=== PATIENT | female | born 1945 | race African-American/Black ===

== ENCOUNTER 2023-07-29 11:04 | Outpatient (RCR) | payer MEDICARE, OTHER, SELFPAY ==
[2023-07-01] MEDS: XOLAIR 150 MG SC ×2 (11:18→11:19)
[2023-07-29 11:44] VITALS: BP 139/64
[2023-07-29] MEDS: XOLAIR 150 MG SC ×2 (11:51)
== END 2023-07-29 23:59 | disposition home or self-care (01) ==
LOC: OID 11:04
PROVIDERS: ATTENDING PHYSICIAN Internal Medicine Critical Care Medicine; FAMILY PHYSICIAN Family Medicine
DX: J45.50 Severe persistent asthma, uncomplicated (principal); J45.901 Unspecified asthma with (acute) exacerbation
CPT/HCPCS: 96372; J2357

== ENCOUNTER 2023-08-26 10:50 | Outpatient (RCR) | payer MEDICARE, OTHER, SELFPAY ==
[2023-08-26 11:02] VITALS: BP 119/74
[2023-08-26] MEDS: XOLAIR 150 MG SC ×2 (11:18→11:19)
== END 2023-08-29 23:59 | disposition home or self-care (01) ==
LOC: OID 10:50
PROVIDERS: ATTENDING PHYSICIAN Internal Medicine Critical Care Medicine; FAMILY PHYSICIAN Family Medicine
DX: J45.50 Severe persistent asthma, uncomplicated (principal); J45.901 Unspecified asthma with (acute) exacerbation
CPT/HCPCS: 96372; J2357

== ENCOUNTER 2023-09-23 10:56 | Outpatient (RCR) | payer MEDICARE, OTHER, SELFPAY ==
[2023-09-23 11:45] VITALS: BP 134/74
[2023-09-23] MEDS: XOLAIR 150 MG SC ×2 (12:01→12:02)
== END 2023-09-24 08:33 | disposition home or self-care (01) ==
LOC: OID 10:56
PROVIDERS: ATTENDING PHYSICIAN Internal Medicine Critical Care Medicine; FAMILY PHYSICIAN Family Medicine
DX: J45.50 Severe persistent asthma, uncomplicated (principal); J45.901 Unspecified asthma with (acute) exacerbation
CPT/HCPCS: 96372; J2357

== ENCOUNTER 2023-10-21 10:56 | Outpatient (RCR) | payer MEDICARE, OTHER, SELFPAY ==
[2023-10-21 11:17] VITALS: BP 153/70
[2023-10-21] MEDS: XOLAIR 150 MG SC ×2 (11:24→11:25)
== END 2023-10-21 15:16 | disposition home or self-care (01) ==
LOC: OID 10:56
PROVIDERS: ATTENDING PHYSICIAN Internal Medicine Critical Care Medicine; FAMILY PHYSICIAN Family Medicine
DX: J45.50 Severe persistent asthma, uncomplicated (principal); J45.901 Unspecified asthma with (acute) exacerbation
CPT/HCPCS: 96372; J2357

== ENCOUNTER 2023-11-10 15:36 | Inpatient (IN) | payer MEDICARE, OTHER, SELFPAY ==
[2023-11-10] VITALS (7 sets, daily range): BP systolic 125–168; BP diastolic 58–82; BMI 47.3; BMI 36.7
--- NOTE | 2023-11-10 12:34 | ED.GENMED ---
History of Present Illness
General
Chief Complaint: Breathing Problem
Source: patient and ambulance crew
Exam Limitations: none
Time Seen by Provider: 11/10/23 12:32
Nursing documentation reviewed up to this point in time: agreed with
Travel History
Have you had any contact with someone who has COVID-19?: No
Do you have any symptoms of coronavirus? Fever > 100 degrees, chills, cough, shortness of breath, sore throat, loss of taste or smell, muscle aches, or headache?: No
History of Present Illness
History of Present Illness:
77-year-old female here for 'I'm coughing,' from PCP office via EMS for shortness of breath and cough. Received a DuoNeb and albuterol neb by EMS en route. Reportedly pulse ox was less than 87% on room air at the office and patient placed on 4 L
nasal cannula with pulse ox increasing to 97%.
Patient with history of asthma, COPD, pneumonia, Chronic diastolic HF, CAD, HTN, HLD, edema, NIDDM, PE on Eliquis, presents with Caregiver Sarahi at bedside. Sarahi states pt has had cough and increasingly more SOB with decreased appetite past 2
days. Went to PCP for her routine 3 month visit and found to have low oxygen with cough and wheezing. States pt does not need home oxygen and does not use it. Denies fever. Pt denies CP, abdominal pain.
Past History
Past History
ED Past Medical History: Asthma, CHF, COPD, HTN, Hypercholesterolemia, NIDDM, MA and Other (Home oxygen, pneumonia, urinary tract infections, ambulatory dysfunction, cataracts, cellulitis, history of intubation); Negative IDDM
ED Past Surgical History: Cardiac (Cardiac catheteriztion), Tonsilectomy and Other (Bilateral cataract surgery)
Social History
Tobacco: Non-smoker
Alcohol: None
Drug: None
Personal:
Living: alone (Has nurses aids coming in)
Employment: Not employed
Family History
Family History: Unable to obtain
Review of Systems
Review of Systems
Allergies reviewed?: Yes
All Other Systems: ROS reviewed and negative except as documented in HPI and ROS
Constitutional: Reports fatigue; Denies fever
Respiratory: Reports cough and trouble breathing
Cardiac: Denies chest pain
ABD/GI: Reports anorexia; Denies abdominal pain, nausea, vomiting or diarrhea
: Denies dysuria or difficulty voiding
Musculoskeletal: Reports other (ambulates short distances with walker, otherwise wheelchair bound)
Skin: Reports no symptoms
Neurological: Reports no symptoms
Phy Exam
Physical Exam
Physical Exam:
GENERAL: Mild respiratory distress. Alert
CONSTITUTIONAL: Afebrile.
EYES: Clear, conjunctivae normal
ENMT: moist mucus membranes
RESPIRATORY: Regular respirations, labored, lungs with prolonged expiratory phase with low pitched wheezing throughout. Pulse ox 92% RA
CARDIOVASCULAR: Regular rate and rhythm, no murmurs, no rubs.
GI: Soft, morbid obesity, nontender, normal BS
MUSCULOSKELETAL: Moves with ease. Well perfused. No edema
SKIN: Warm, dry, normal
PSYCH: Anxious mood and affect. Well kept, interactive and appropriate
NEUROLOGIC: Awake, alert and oriented. No focal neurological deficits
Scores
Heart Failure Risk
Heart Failure Risk Score: Not Applicable
Course
Orders/Labs/Results
Orders:
Orders
11/10/23 12:37
EKG [Electrocardiogram (*1)] Urgent
Reason for Study: Shortness of Breath
EKG- Treatment ONCE
11/10/23 12:42
Electrocardiogram (*1) Stat
Reason for Study: Other
Other Reason for Exam: pneumonia
EKG- Treatment ONCE
Dexamethasone Sod Phosphate [Decadron] 10 mg IV NOW STA
Ipratropium/Albuterol Sulfate [Duoneb] 3 ml INH R NOW STA
O2 Therapy [RESP] Stat
Nasal Cannula Liter Flow: 2 LPM
Titrate/Wean O2 to maintain O2 sat greater than (%): 94
11/10/23 12:43
CR Chest - 2 Views Urgent
Comment:
Reason For Exam: Asthma, wheezing, cough
11/10/23 13:04
Complete Blood Count/With Diff Urgent
Comprehensive Metabolic Panel Urgent
Lactic Acid Q4H
Comment: CANCEL 2nd LACTIC ACID IF 1st LACTIC ACID IS LESS THAN 2
Blood Culture Q30M
ABIGAIL Source: Blood/Venous
Specimen Description:
Blood Culture Q30M
ABIGAIL Source: Blood/Venous
Specimen Description:
11/10/23 14:08
NT-proBNP Urgent
Troponin I Urgent
11/10/23 16:45
Lactic Acid Q4H
Comment: CANCEL 2nd LACTIC ACID IF 1st LACTIC ACID IS LESS THAN 2
Abnormal Lab Results
11/10/23
13:04
MCHC 32.3 L g/dL
(33.0-37.0)
RDW 15.5 H %
(11.5-14.5)
MPV 10.6 H fL
(7.4-10.4)
Carbon Dioxide 32 H mmol/L
(22-30)
Glucose 180 H mg/dl
(70-99)
Lactic Acid 2.3 H mmol/L
(0.7-2.0)
Alkaline Phosphatase 166 H U/L
(38-126)
11/10/23 13:04
11/10/23 13:04
Vital Signs
Initial and Last Documented VS:
Initial Vital Signs
Temp Pulse Resp BP Pulse Ox
98.4 F 118 20 141/69 95
11/10/23 12:21 11/10/23 12:21 11/10/23 12:21 11/10/23 12:21 11/10/23 12:21
Last Documented Vital Signs
Temp Pulse Resp BP Pulse Ox
98.4 F 100 20 144/80 92
11/10/23 12:21 11/10/23 14:45 11/10/23 12:21 11/10/23 14:00 11/10/23 14:45
MDM/Problems Addressed
Differential Diagnosis Includes:
asthma exacerbation/ COPD/bronchitis, PNA
MDM/Problems Addressed:
77-year-old female here for 'I'm coughing,' from PCP office via EMS for shortness of breath and cough. Received a DuoNeb and albuterol neb by EMS en route. Reportedly pulse ox was less than 90% on room air at the office and patient placed on 4 L
nasal cannula with pulse ox increasing to 97%.
Patient with history of asthma, COPD, pneumonia, Chronic diastolic HF, CAD, HTN, HLD, edema, NIDDM, PE on Eliquis, presents with Caregiver Sarahi at bedside. Sarahi states pt has had cough and increasingly more SOB with decreased appetite past 2
days. Went to PCP for her routine 3 month visit and found to have low oxygen with cough and wheezing. States pt does not need home oxygen and does not use it. Denies fever. Pt denies CP, abdominal pain.
Afebrile, mild distress with dyspnea and wheezing
EKG: NSR
1:30 PM
Chest x-ray: No acute cardiopulmonary process
2:30 p.m.
CBC unremarkable
CMP with no clinically significant abnormality
Troponin WNL
BNP WNL
2:45 p.m.
In to re evaluate pt. Still with some end expiratory low pitched wheezes throughout. Pulse ox 96% on 2L NC O2. She is hungry and asking to eat.
Off O2 desaturated to 89% while eating sandwich
Plan: Admit acute respiratory failure/asthma exacerbation
Hospitalist notified of admission.
Chronic conditions affecting care: HTN, COPD and Asthma
*EKG
EKG Intrepretation Date: 11/10/23
Interpretation: normal
Rate: normal
Rhythm: sinus
[place]: normal axis
Interval: normal interval
QRS Pattern: normal QRS
Ischemia: no ischemia
*Critical Care Note
Total Time (30-74mins, 75-104mins- exclusive of procedures): Not Applicable
ED Attending Note
-
Portions of this chart may have been created with voice recognition software.� Occasional wrong word or��sound alike� substitutions may have occurred due to the inherent limitations of voice recognition software.
Discharge Plan
Departure
Patient Disposition: Admit
Date of Disposition: 11/10/23
Time of Disposition: 14:47
Presentation/result/management discussed w/ accepting MD/DO: Hospitalist
Condition: Fair
Discharge Problem:
Acute respiratory failure, Asthma
Prescriptions:
No Action
montelukast 10 MG tablet
10 mg PO HS
Eliquis 5 MG tablet
5 mg PO BID
lisinopril 5 MG tablet
5 mg PO DAILY
levothyroxine 25 MCG tablet
25 mcg PO DAILY
atorvastatin 80 MG tablet
1 tab PO HS
amlodipine [Norvasc] 5 MG tablet
2 tab PO HS
albuterol sulfate [Proventil HFA] 90 MCG/PUFF HFA aerosol inhaler
2 puff inhalation PRN PRN (Reason: WHEEZING)
prednisone 10 MG tablet
5 mg PO Daily
azithromycin 250 MG tablet
1 tab PO DAILY
omeprazole 20 MG capsule,delayed release(DR/EC)
1 cap PO DAILY
Patient Comments:
TAKES BEFORE BREAKFAST
guaifenesin 600 mg Tablet Extended Release
1,200 mg PO Q12H
ergocalciferol (vitamin D2) [Vitamin D2] 10 mcg (400 unit) Tablet
10 mcg PO .QMON/FRI
bumetanide 1 mg Tablet
1 mg PO BID
Referrals:
Panfilo Ngo MD [Family Provider] -
Interventions
Interventions:
*Risk Screen - Suicide Last Done: 11/10/23 12:19
*General Assessment Last Done: 11/10/23 12:23
*Neglect/Abuse Screening Last Done: 11/10/23 12:19
ED- Fall Risk Assessment Last Done: 11/10/23 12:18
*ED COVID-19 Vaccine History Last Done: 11/10/23 12:19
ED- Cardiac Assessment Last Done: 11/10/23 12:25
ED- Pulmonary Assessment Last Done: 11/10/23 12:25
Discharge Date and Time
Print Language: HUNGARIAN
[2023-11-10] MEDS: DECADRON 10 MG IV (13:00)
[2023-11-10] MEDS: DUONEB 3 ML INH ×2 (13:00→20:21)
[2023-11-10 13:30] LABS: % Basophils 0.5 % (0-2); % Eosinophils 1.5 % (0-6); % Immature Granulocytes 0.3 % (0-0.5); % Lymphocytes 31.8 % (20.5-51.1); % Monocytes 6.9 % (1.7-9.3); Absolute Eosinophils 0.1 10^3/uL (0-0.7); Absolute Lymphocytes 2.3 10^3/uL (1.2-3.4); Absolute Monocytes 0.5 10^3/uL (0.1-0.6); Absolute Neutrophils 4.3 10^3/uL (1.4-6.5); Hematocrit 40.9 % (37.0-47.0); Hemoglobin 13.2 g/dL (12.0-16.0); Mean Corp Hgb Conc. 32.3 g/dL (33.0-37.0); Mean Corpuscular Hgb 29.7 pg (27.0-31.0); Mean Corpuscular Volume 91.9 fL (81.0-99.0); Mean Platelet Volume 10.6 fL (7.4-10.4); Nucleated Red Blood Cells % 0 %; Platelet Count 181 10^3/uL (130-400); Red Blood Cell Count 4.45 10^6/uL (4.20-5.40); Red Cell Dist. Width 15.5 % (11.5-14.5); White Blood Cell Count 7.3 10^3/uL (4.8-10.8)
[2023-11-10 13:37] LABS: Lactic Acid 2.3 mmol/L (0.7-2.0)
[2023-11-10 13:51] LABS: ALT (SGPT) 17 U/L (0-35); AST (SGOT) 29 U/L (14-36); Albumin 3.7 g/dl (3.5-5.0); Alkaline Phosphatase 166 U/L (38-126); Blood Urea Nitrogen 13 mg/dl (7-17); Carbon Dioxide 32 mmol/L (22-30); Chloride 101 mmol/L (98-107); Estimated Creatinine Clearance 64 ml/min; Glucose 180 mg/dl (70-99); Potassium 3.5 mmol/L (3.5-5.1); Sodium 142 mmol/L (135-145); Total Bilirubin 0.6 mg/dl (0.2-1.3); eGFR > 60.00
[2023-11-10 14:57] LABS: NT-proBNP 115 pg/ml; Troponin I < 0.012 ng/ml
--- NOTE | 2023-11-10 15:03 | HPS.HSE ---
Family Physician
-
Family Physician: Panfilo Ngo
Chief Complaint
-
sob
History of Present Illness
77-year-old female with past medical history for asthma, CHF, COPD, hypertension, hyperlipidemia, diabetes , DE presented to us with cough associated short of breath for past 2 days . Cough is nonproductive . Stated short of breath worse with
activity . Patient denied orthopnea . Patient denied weight gain . Patient denied any lower extremities edema . Patient complained of chest heaviness with coughing. Patient denied any headache, dizziness, syncopal episode. Patient denied
fever. Complain of generalized. Patient denied abdominal pain, nausea, vomiting. Denied dysuria hematuria.. Went to PCP for her routine 3 month visit and found to have low oxygen with cough and wheezing. Patient has oxygen prescribed for as
needed. She has not used it for a while.
On arrival she was hypoxic, requiring 4 L of oxygen. Admitting for further management.
Medical History
Past Medical History
Past Medical History: Reports Other
Additional Past Medical History:
COPD
Acute coronary syndrome
Diabetes type 2
Hypertension diastolic CHF
Restrictive and obstructive lung disease
Hyperlipidemia
Pulmonary embolism
Past Surgical History: Reports Other
Additional Past Surgical History:
Tonsillectomy
Cataract surgery
Social History
Tobacco: Non-smoker
Alcohol: None
Drug: None
Family History
Family History: Not pertinent
Allergies / Home Medications
Allergies reflects when Allergies were last updated in [employer].
Home Medications with original date entered in [employer]
Allergy/Medication List:
Allergies
Allergy/AdvReac Type Severity Reaction Status Date / Time
Penicillins Allergy Unknown Itching Verified 11/10/23 12:17
Cephalosporins Allergy Unknown Verified 11/10/23 12:17
latex Allergy Hypersensitivity, Verified 11/10/23 12:17
irritation
penicillin G Allergy Hives Verified 11/10/23 12:17
DUST Allergy Unknown Shortness Uncoded 11/10/23 12:17
of Breath
MOLDS Allergy Unknown Shortness Uncoded 11/10/23 12:17
of Breath
Dust, Mold Allergy 'break out' Uncoded 11/10/23 12:17
Home Medications
amlodipine 5 mg tablet 10 mg PO HS 11/10/23
atorvastatin 80 mg tablet 80 mg PO HS 11/10/23
azithromycin 250 mg tablet 250 mg PO DAILY 11/10/23
budesonide 0.5 mg/2 mL suspension for nebulization 0.5 mg inhalation R BID 11/10/23
bumetanide 1 mg tablet 1 mg PO BID 11/10/23
ergocalciferol (vitamin D2) 1,250 mcg (50,000 unit) capsule 1,250 mcg PO MOFR@0800 11/10/23
guaifenesin 600 mg tablet, extended release 12 hr 600 mg PO BID 11/10/23
ipratropium 0.5 mg-albuterol 3 mg (2.5 mg base)/3 mL nebulization soln 3 ml inhalation R BID 11/10/23
levothyroxine 25 mcg tablet 25 mcg PO DAILY 11/10/23
lisinopril 2.5 mg tablet 5 mg PO DAILY 11/10/23
montelukast 10 mg tablet 10 mg PO DAILY 11/10/23
omeprazole 20 mg capsule,delayed release 20 mg PO DAILY 11/10/23
prednisone 5 mg tablet 5 mg PO DAILY 11/10/23
Review of Systems
-
Constitutional: Reports No Symptoms
EENT: Reports No Symptoms
Respiratory: Reports Cough and Trouble Breathing
Cardiac: Reports No Symptoms
Abdomen/GI: Reports No Symptoms
: Reports No Symptoms
Musculoskeletal: Reports No Symptoms
Skin: Reports No Symptoms
Neurological: Reports No Symptoms
Endocrine: Reports No Symptoms
Hematologic/Lymphatic: Reports No Symptoms
Psych: Reports No Symptoms
Physical Exam
Vital Signs
Vital Signs
Temp Pulse Resp BP Pulse Ox
98.4 F 100 20 144/80 92
11/10/23 12:21 11/10/23 14:45 11/10/23 12:21 11/10/23 14:00 11/10/23 14:45
Physical Exam
General: Well Developed, Well Nourished and No Apparent Distress
HEENT: NormoCephalic, Moist mucous membranes and Atraumatic
Respiratory: Wheezes
Cardiac: S1/S2 and Regular Rhythm; No Murmur or Rub
GI: Soft, Non Tender, Non Distended and Normal Bowel Sounds; No Organomegaly
Rectal: Deferred by Provider
Musculoskeletal: No Clubbing, No Cyanosis and No Edema
Skin: No Rash
Neuro: AO x 3 and Nonfocal/grossly intact
Psych: Calm
Laboratory Results
-
11/10/23 13:04
11/10/23 13:04
Laboratory Results
Lactic Acid 2.3 mmol/L (0.7-2.0) H 11/10/23 13:04
Total Bilirubin 0.6 mg/dl (0.2-1.3) 11/10/23 13:04
AST 29 U/L (14-36) 11/10/23 13:04
ALT 17 U/L (0-35) 11/10/23 13:04
Alkaline Phosphatase 166 U/L (38-126) H 11/10/23 13:04
Troponin I < 0.012 ng/ml 11/10/23 14:08
Data Reviewed
-
Diagnostic Radiology: Report Reviewed by me
Lab Data: Labs Reviewed by me
Impression/Plan
-
# Acute hypoxic respiratory failure likely from COPD/asthma exacerbation
-Chest x-ray with no acute cardiopulmonary process
-Patient received dexamethasone and nebs in ER
-Obtain COVID and flu
-Continue nebs as needed for shortness and wheezing
- Decadron 4 Mg IV every 8 hours
-Continue supplemental oxygen to keep sat greater than 92
-wean as tolerated
-Singular continued
-doxy added
# Lactic acidosis
- lactic 2.3
-Blood culture sent from ER
-Trend lactic
#Hyperlipidemia
-Continue statin.
#Pulmonary emboli
- Continue with Eliquis.
# Hypertension
-Blood pressure stable in ER-.
Norvasc.lisinopril continued
# History of congestive heart failure
-Patient not in acute exacerbation
-Bumex continued
-Strict ALYIAH
-Daily weight
# Hypothyroidism
-Levothyroxine continued
# GERD
-Omeprazole continued
# DVT prophylaxis: On Eliquis.
#CODE STATUS: Full code.
[2023-11-10 15:47] LABS: COVID-19 Antigen Negative (Negative)
[2023-11-10] MEDS: VIBRAMYCIN 260 MG IV (16:07)
--- NOTE | 2023-11-10 17:23 | W.PN.UPDATE ---
Update Note
Progress Note Update
I saw and examined the patient. The GUN BARREL FINISHER's note was reviewed and I agree with the note.
Patient is 77-year-old female with past medical history of COPD, coronary disease/NSTEMI '14, mitral regurgitation, type 2 diabetes, hypertension, chronic diastolic heart failure, hyperlipidemia, history of pulm embolism on eliquis, h/o left lower
lobe cavitary lesion,obesity, record paraplegic, ambulatory function with wheelchair use, no lives in 2000 sent to ER for having worsening shortness of breath. Patient was noted to having audible wheezing. No cough/phlegm or fever. Patient have
history of on and off oxygen use at the facility. Currently on 3 to oxygen through nasal cannula in the ER. Denies any associated chest pain/palpitation/dizziness/abdominal pain/nausea/vomiting/diarrhea/dysuria
HEENT: No pallor, cyanosis, or jaundice. Throat clear.
NECK: Supple. No JVD.
RESPIRATORY: diffuse bilateral wheezing
CVS: S1, S2 normal. RRR. No murmur, rub or gallop.
ABDOMEN: Soft, non-tender. No distension. BS+/normal.
EXTREMITIES: No peripheral cyanosis or edema.
MARKETING STRATEGY MANAGER: AOx3. No focal deficits.
COPD flare up
Acute Hypoxic respiratory insufficiency
-Patient had diffuse wheezing on exam
-Chest x-ray did not show any overt
-Patient does have a history of COPD and follows up with Dr. Del Valle
-Start patient on IV Decadron 4 mg every 8 hours and nebulizer therapy
-Start doxycycline as part of COPD flare.
-Admit to MedSurg
h/o PE
-continue on eliquis
Chronic diastolic heart failure
-No signs of flareup.
DVT PPX - eliquis
Full code
[2023-11-10] MEDS: BUMEX 1 MG PO (17:27)
[2023-11-10 17:37] LABS: Lactic Acid 2.4 mmol/L (0.7-2.0)
--- NOTE | 2023-11-10 17:55 | PTCARENOTE ---
pt presents from ED via stretcher. pt is AAO*3, Vss, pt denies any pain. pt is wheelchair bound at baseline. pt is oriented to the room. call go within the reach. will continue plan of care.
[2023-11-10] MEDS: DUONEB INH (18:01)
[2023-11-10] MEDS: DECADRON 4 MG IV (19:58)
[2023-11-10] MEDS: ELIQUIS 5 MG PO (19:58)
[2023-11-10] MEDS: MUCINEX 600 MG PO (19:58)
[2023-11-10] MEDS: PULMICORT 0.5 MG INH (20:21)
[2023-11-10] MEDS: LIPITOR 80 MG PO (21:24)
[2023-11-10] MEDS: NORVASC 10 MG PO (21:24)
[2023-11-11] MEDS: DECADRON 4 MG IV ×3 (03:08→20:28)
[2023-11-11] MEDS: VIBRAMYCIN 260 MG IV ×2 (03:08→15:11)
[2023-11-11] MEDS: SYNTHROID 25 MCG PO (05:45)
[2023-11-11 05:46] LABS: % Basophils 0.2 % (0-2); % Immature Granulocytes 0.2 % (0-0.5); % Lymphocytes 19.9 % (20.5-51.1); % Monocytes 3.9 % (1.7-9.3); % Neutrophils 75.8 % (42.2-75.2); Absolute Monocytes 0.2 10^3/uL (0.1-0.6); Absolute Neutrophils 3.7 10^3/uL (1.4-6.5); Hematocrit 38.5 % (37.0-47.0); Hemoglobin 12.6 g/dL (12.0-16.0); Mean Corp Hgb Conc. 32.7 g/dL (33.0-37.0); Mean Corpuscular Hgb 29.6 pg (27.0-31.0); Mean Corpuscular Volume 90.6 fL (81.0-99.0); Mean Platelet Volume 10.6 fL (7.4-10.4); Nucleated Red Blood Cells % 0 %; Platelet Count 187 10^3/uL (130-400); Red Blood Cell Count 4.25 10^6/uL (4.20-5.40); Red Cell Dist. Width 15.2 % (11.5-14.5); White Blood Cell Count 4.8 10^3/uL (4.8-10.8)
[2023-11-11 06:00] VITALS: BMI 36.8
[2023-11-11 06:11] LABS: Blood Urea Nitrogen 15 mg/dl (7-17); Calcium 8.7 mg/dl (8.4-10.2); Carbon Dioxide 30 mmol/L (22-30); Chloride 105 mmol/L (98-107); Estimated Creatinine Clearance 85 ml/min; Glucose 167 mg/dl (70-99); Potassium 3.9 mmol/L (3.5-5.1); Sodium 142 mmol/L (135-145); eGFR > 60.00
[2023-11-11 07:55] VITALS: BP 166/78
[2023-11-11] MEDS: DUONEB 3 ML INH ×4 (07:59→20:19)
[2023-11-11] MEDS: PULMICORT 0.5 MG INH ×2 (07:59→20:19)
[2023-11-11] MEDS: MUCINEX 600 MG PO (08:10)
[2023-11-11] MEDS: ELIQUIS 5 MG PO ×2 (08:10→20:29)
[2023-11-11] MEDS: ZESTRIL 5 MG PO (08:10)
[2023-11-11] MEDS: PROTONIX 40 MG PO (08:10)
[2023-11-11] MEDS: BUMEX 1 MG PO ×2 (08:10→15:11)
[2023-11-11] MEDS: SINGULAIR 10 MG PO (08:10)
--- NOTE | 2023-11-11 08:28 | PTCARENOTE ---
Patient endorsed difficulty with getting pills down during AM med pass. RN crushed medications up in applesauce and patient still endorsed difficulty swallowing. Pt also admitted to having difficulty swallowing/chewing food sometimes. RN ordered
swallow/speech evaluation. See orders.
--- NOTE | 2023-11-11 10:45 | PTOTSP ---
Speech Language Pathology
Pt seen for clinical bedside swallow evaluation. Previous VSE completed 12/04/13 with findings of mild oropharyngeal dysphagia. No penetration/aspiration noted. Recommendations were for regular solids/thin liquids.
This date, P.O. trials of regular solids, soft solids, and thin liquids provided. Adequate mastication, bolus formation, and A-P transit noted with no oral residue. No overt signs of aspiration. When asked about swallowing difficulties she
described to RN earlier, she described food sticking in esophagus. She stated this is relatively new and only happens occasionally. Not noted to happen during evaluation. Of note, pt with varying reports and do not suspect she is an accurate
historian.
Recommend:
(1) Continue regular solids/thin liquids
(2) Aspiration/esophageal precautions: sit upright during meals and for at least 30 minutes after, slow rate, single sips, small bites, moisten dry foods
(3) Meds in puree per pt preference
(4) RADIATION CONTROL WORKER to follow, likely briefly
(5) Consider OP GI if complaints persist
[2023-11-11 11:32] VITALS: BP 112/57; PULSE 67; O2SAT 99
--- NOTE | 2023-11-11 14:09 | CM ---
Patient seen bedside, initial assessment completed. Patient reports she lives in an apartment, has 24/7 caregiver. Patient is unsure of caregiver agency. Per PT notes, patient has a wheelchair, is able to transfer with a walker. Patient reports she
has home O2, unsure of supplier. Patient confirms PCP Panfilo Ngo, pharmacy [facility] on [facility]. CM attempted to call patients sons to confirm 24/7 caregiver, unable to leave messages. CM will continue to follow for discharging
planning needs.
plan; return home with 24/7 care when stable.
--- NOTE | 2023-11-11 14:41 | W.PN.HOSP.TC ---
Today's Communication/Plan
-
continue steroids
wean off oxygen
Assessment / Plan
Assessment / Plan
# Acute hypoxic respite insufficiency
COPD flare
-Chest x-ray with no acute cardiopulmonary process
-COVID/flu neg.
-cleared speech eval
-Maintain on IV Decadron and nebulizer therapy
-Wean off oxygen as possible
# Lactic acidosis
- presumed type B, no concern sepsis
#Hyperlipidemia
-Continue statin.
#h/o Pulmonary emboli
- Continue with Eliquis.
# Essential Hypertension
-maintain on norvasc/lisnopril
# History of congestive heart failure
-Patient not in acute exacerbation
-Bumex continued
-Daily weight
# Hypothyroidism
-Levothyroxine continued
# GERD
-Omeprazole continued
DVT prophylaxis: On Eliquis.
CODE STATUS: Full code.
Anticipated Discharge: 24 - 48 hours
Subjective/Interval History
-
Date of Service: November 11, 2023
Breathing better continues to wheeze
Not voicing any complaint of cough/chest discomfort
Objective Data
-
Labs:
Laboratory Results
11/11/23
05:20
WBC 4.8
Hgb 12.6
Hct 38.5
Plt Count 187
Sodium 142
Potassium 3.9
Chloride 105
Carbon Dioxide 30
BUN 15
Creatinine 0.7
Glucose 167 H
Calcium 8.7
Vital Signs:
Vital Signs
Temp Pulse Resp BP Pulse Ox
97.8 F 62 16 166/78 96
11/11/23 07:55 11/11/23 11:47 11/11/23 11:47 11/11/23 07:55 11/11/23 11:47
Review of Systems
-
Respiratory: Reports No Symptoms
Cardiac: Reports No Symptoms
Abdomen/GI: Denies No Symptoms
Physical Exam
-
General: Comfortable
HEENT: Negative Oxygen
Respiratory: Clear to Auscultation
Cardiac: Regular Rhythm and S1/S2; Negative Murmur or Rub
GI: Soft, Nontender and Nondistended
Musculoskeletal: No Edema
Neuro: Awake, Alert, Oriented, No Motor Deficits and Nonfocal/Grossly Intact
Psych: Calm
[2023-11-11 15:02] VITALS: BP 125/58
[2023-11-11] MEDS: MUCINEX PO ×2 (20:29→20:41)
[2023-11-11] MEDS: FLUSH (NSS) 2 FLUSH IV (20:29)
[2023-11-11] MEDS: LIPITOR 80 MG PO (21:58)
[2023-11-11] MEDS: NORVASC 10 MG PO (21:59)
[2023-11-11 23:30] VITALS: BP 133/51
[2023-11-12] MEDS: DECADRON 4 MG IV ×3 (04:24→21:56)
[2023-11-12] MEDS: VIBRAMYCIN 260 MG IV ×2 (04:24→15:08)
[2023-11-12] MEDS: FLUSH (NSS) 3 FLUSH IV (04:24)
[2023-11-12] MEDS: SYNTHROID 25 MCG PO (05:13)
[2023-11-12 05:33] VITALS: BMI 36.5
[2023-11-12 07:45] VITALS: BP 117/59
[2023-11-12] MEDS: DUONEB INH ×2 (07:49→15:04)
[2023-11-12] MEDS: PULMICORT INH (07:49)
[2023-11-12 08:38] LABS: % Basophils 0.3 % (0-2); % Immature Granulocytes 0.3 % (0-0.5); % Monocytes 4.7 % (1.7-9.3); % Neutrophils 77.7 % (42.2-75.2); Absolute Lymphocytes 1.3 10^3/uL (1.2-3.4); Absolute Monocytes 0.4 10^3/uL (0.1-0.6); Absolute Neutrophils 6.1 10^3/uL (1.4-6.5); Hematocrit 34.4 % (37.0-47.0); Hemoglobin 11.1 g/dL (12.0-16.0); Mean Corp Hgb Conc. 32.3 g/dL (33.0-37.0); Mean Corpuscular Hgb 29.7 pg (27.0-31.0); Mean Platelet Volume 10.7 fL (7.4-10.4); Nucleated Red Blood Cells % 0 %; Platelet Count 166 10^3/uL (130-400); Red Blood Cell Count 3.74 10^6/uL (4.20-5.40); Red Cell Dist. Width 15.7 % (11.5-14.5); White Blood Cell Count 7.9 10^3/uL (4.8-10.8)
[2023-11-12] MEDS: ZESTRIL 5 MG PO (08:44)
[2023-11-12] MEDS: SINGULAIR 10 MG PO (08:44)
[2023-11-12] MEDS: ELIQUIS 5 MG PO ×2 (08:44→21:58)
[2023-11-12] MEDS: BUMEX 1 MG PO ×2 (08:44→15:08)
[2023-11-12] MEDS: PROTONIX 40 MG PO (08:44)
[2023-11-12] MEDS: MUCINEX PO (08:45)
--- NOTE | 2023-11-12 09:33 | W.PN.HOSP.TC ---
Today's Communication/Plan
-
Continue steroids/nebulizer therapy 1 more day
Possible discharge tomorrow
Assessment / Plan
Assessment / Plan
# Acute hypoxic respite insufficiency
COPD flare
-Chest x-ray with no acute cardiopulmonary process
-COVID/flu neg.
-cleared speech eval
-Maintain on IV Decadron and nebulizer therapy
-Wean off oxygen as possible
# Lactic acidosis
- presumed type B, no concern sepsis
#Hyperlipidemia
-Continue statin.
#h/o Pulmonary emboli
- Continue with Eliquis.
# Essential Hypertension
-maintain on norvasc/lisnopril
# History of congestive heart failure
-Patient not in acute exacerbation
-Bumex continued
-Daily weight
# Hypothyroidism
-Levothyroxine continued
# GERD
-Omeprazole continued
DVT prophylaxis: On Eliquis.
CODE STATUS: Full code.
Anticipated Discharge: Within 24 hours
Subjective/Interval History
-
Date of Service: November 12, 2023
Continues to improve
Remains poor historian and not verbalizing much complaint
No acute issues reported
Objective Data
-
Labs:
Laboratory Results
11/12/23
08:24
WBC 7.9
Hgb 11.1 L
Hct 34.4 L
Plt Count 166
Sodium Pending
Potassium Pending
Chloride Pending
Carbon Dioxide Pending
BUN Pending
Creatinine Pending
Glucose Pending
Calcium Pending
Vital Signs:
Vital Signs
Temp Pulse Resp BP Pulse Ox
98.0 F 66 20 117/59 96
11/12/23 07:45 11/12/23 07:45 11/12/23 07:45 11/12/23 07:45 11/12/23 07:45
I&O
11/11/23 11/12/23 11/13/23
06:59 06:59 06:59
Intake Total 550 / 550 120 / 120
Balance 550 / 550 120 / 120
Review of Systems
-
Respiratory: Reports No Symptoms
Cardiac: Reports No Symptoms
Abdomen/GI: Reports No Symptoms
Physical Exam
-
General: Obese
HEENT: Oxygen
Respiratory: Wheezes
Cardiac: Regular Rhythm and S1/S2; Negative Murmur or Rub
GI: Soft and Nontender
Musculoskeletal: No Edema
Neuro: Awake, Alert, Oriented, Nonfocal/Grossly Intact and Other (Paraplegic)
Psych: Calm
[2023-11-12 09:48] LABS: Blood Urea Nitrogen 23 mg/dl (7-17); Calcium 8.8 mg/dl (8.4-10.2); Carbon Dioxide 29 mmol/L (22-30); Chloride 106 mmol/L (98-107); Estimated Creatinine Clearance 74 ml/min; Glucose 243 mg/dl (70-99); Potassium 3.8 mmol/L (3.5-5.1); Sodium 141 mmol/L (135-145); eGFR > 60.00
[2023-11-12] MEDS: DUONEB 3 ML INH ×2 (11:22→19:48)
--- NOTE | 2023-11-12 12:20 | CM ---
Addendum entered by Cherie Cortez 11/12/23 15:43:
CM left voicemail for patients son requesting private caregiver information, requested return call.
Original Note:
Patient seen bedside, remains on O2. Patient reports her son will be here to visit, CM will return when son is visiting to obtain private caregiver information. CM will continue to follow for discharge planning needs.
Plan; return home with 21/12 caregiver, watch for O2 needs.
[2023-11-12 15:11] VITALS: BP 130/63
[2023-11-12] MEDS: PULMICORT 0.5 MG INH (19:48)
[2023-11-12] MEDS: FLUSH (NSS) 2 FLUSH IV (21:56)
[2023-11-12] MEDS: MUCINEX 600 MG PO (21:58)
[2023-11-12] MEDS: LIPITOR 80 MG PO (21:58)
[2023-11-12] MEDS: NORVASC PO (22:05)
[2023-11-12 23:55] VITALS: BP 147/53
[2023-11-13] MEDS: DECADRON 4 MG IV ×2 (04:25→12:14)
[2023-11-13] MEDS: FLUSH (NSS) 3 FLUSH IV (04:26)
[2023-11-13] MEDS: VIBRAMYCIN 260 MG IV (04:26)
[2023-11-13] MEDS: SYNTHROID 25 MCG PO (05:36)
[2023-11-13 06:00] VITALS: BMI 37.3
[2023-11-13] MEDS: PULMICORT 0.5 MG INH ×2 (07:20→19:18)
[2023-11-13] MEDS: DUONEB 3 ML INH ×4 (07:20→19:18)
[2023-11-13 07:22] LABS: % Basophils 0.1 % (0-2); % Immature Granulocytes 0.4 % (0-0.5); % Lymphocytes 23.2 % (20.5-51.1); % Monocytes 3.2 % (1.7-9.3); % Neutrophils 73.1 % (42.2-75.2); Absolute Monocytes 0.3 10^3/uL (0.1-0.6); Absolute Neutrophils 6.1 10^3/uL (1.4-6.5); Hematocrit 36.3 % (37.0-47.0); Hemoglobin 11.4 g/dL (12.0-16.0); Mean Corp Hgb Conc. 31.4 g/dL (33.0-37.0); Mean Corpuscular Hgb 29.1 pg (27.0-31.0); Mean Corpuscular Volume 92.6 fL (81.0-99.0); Nucleated Red Blood Cells % 0 %; Platelet Count 173 10^3/uL (130-400); Red Blood Cell Count 3.92 10^6/uL (4.20-5.40); Red Cell Dist. Width 15.8 % (11.5-14.5); White Blood Cell Count 8.4 10^3/uL (4.8-10.8)
[2023-11-13 07:43] LABS: Blood Urea Nitrogen 25 mg/dl (7-17); Calcium 8.5 mg/dl (8.4-10.2); Carbon Dioxide 31 mmol/L (22-30); Chloride 106 mmol/L (98-107); Estimated Creatinine Clearance 85 ml/min; Glucose 177 mg/dl (70-99); Potassium 3.8 mmol/L (3.5-5.1); Sodium 141 mmol/L (135-145); eGFR > 60.00
[2023-11-13 07:46] VITALS: BP 167/76
[2023-11-13] MEDS: PROTONIX 40 MG PO (08:07)
[2023-11-13] MEDS: ELIQUIS 5 MG PO ×2 (08:07→21:38)
[2023-11-13] MEDS: MUCINEX 600 MG PO (08:07)
[2023-11-13] MEDS: BUMEX 1 MG PO ×2 (08:07→15:35)
[2023-11-13] MEDS: ZESTRIL 5 MG PO (08:07)
[2023-11-13] MEDS: SINGULAIR 10 MG PO (08:07)
--- NOTE | 2023-11-13 14:03 | W.PN.HOSP.TC ---
Today's Communication/Plan
-
switch to oral steroids from AM
procradia/Hydralazine for BP control
Assessment / Plan
Assessment / Plan
# Acute hypoxic respite insufficiency -resolved
COPD flare
-Chest x-ray with no acute cardiopulmonary process
-COVID/flu neg.
-cleared speech evaluation
-Switch to oral steroid
-Some of the wheezing originating from pharyngeal level as well on exam. Denies of history of any vocal cord injury/surgery/dysphonia.
# Lactic acidosis
- presumed type B, no concern sepsis
#Hyperlipidemia
-Continue statin.
#h/o Pulmonary emboli
- Continue with Eliquis.
# Essential Hypertension
HTN urgency
-maintain on Norvasc/lisinopril
-Adding oral Procardia and IV hydralazine for as needed
# History of congestive heart failure
-Patient not in acute exacerbation
-Bumex continued
-Daily weight
# Hypothyroidism
-Levothyroxine continued
# GERD
-Omeprazole continued
DVT prophylaxis: On Eliquis.
CODE STATUS: Full code.
Anticipated Discharge: Within 24 hours
Subjective/Interval History
-
Date of Service: November 13, 2023
continues to wheeze
off of o2
Objective Data
-
Labs:
Laboratory Results
11/13/23
07:04
WBC 8.4
Hgb 11.4 L
Hct 36.3 L
Plt Count 173
Sodium 141
Potassium 3.8
Chloride 106
Carbon Dioxide 31 H
BUN 25 H
Creatinine 0.7
Glucose 177 H
Calcium 8.5
Vital Signs:
Vital Signs
Temp Pulse Resp BP Pulse Ox
97.3 F 51 20 167/76 97
11/13/23 07:46 11/13/23 11:26 11/13/23 11:26 11/13/23 08:07 11/13/23 11:26
I&O
11/12/23 11/13/23 11/14/23
06:59 06:59 06:59
Intake Total 550 / 550 1110 / 1110
Balance 550 / 550 1110 / 1110
Review of Systems
-
Respiratory: Reports No Symptoms
Cardiac: Reports No Symptoms
Abdomen/GI: Reports No Symptoms
Physical Exam
-
General: Obese
HEENT: Oxygen
Respiratory: Wheezes
Cardiac: Regular Rhythm and S1/S2; Negative Murmur or Rub
GI: Soft and Nontender
Musculoskeletal: No Edema
Neuro: Awake, Alert, Oriented, Nonfocal/Grossly Intact and Other (Paraplegic)
Psych: Calm
[2023-11-13] MEDS: PROCARDIA XL (EXTENDED RELEASE) 30 MG PO (15:34)
[2023-11-13 15:57] VITALS: BP 144/57
[2023-11-13 19:30] VITALS: BP 132/57
[2023-11-13] MEDS: MUCINEX PO (20:02)
[2023-11-13] MEDS: NORVASC PO (21:32)
[2023-11-13] MEDS: LIPITOR 80 MG PO (21:38)
[2023-11-13] MEDS: VIBRAMYCIN 100 MG PO (21:39)
[2023-11-13] MEDS: NORVASC 10 MG PO (21:58)
[2023-11-13 23:41] VITALS: BMI 37.3
[2023-11-13 23:55] VITALS: BP 138/63
[2023-11-14] MEDS: SYNTHROID 25 MCG PO (05:08)
[2023-11-14 06:00] VITALS: BMI 37.4
[2023-11-14 06:52] LABS: % Basophils 0.1 % (0-2); % Immature Granulocytes 0.5 % (0-0.5); % Monocytes 6.2 % (1.7-9.3); % Neutrophils 65.2 % (42.2-75.2); Absolute Lymphocytes 2.3 10^3/uL (1.2-3.4); Absolute Monocytes 0.5 10^3/uL (0.1-0.6); Absolute Neutrophils 5.3 10^3/uL (1.4-6.5); Hematocrit 36.2 % (37.0-47.0); Hemoglobin 11.9 g/dL (12.0-16.0); Mean Corp Hgb Conc. 32.9 g/dL (33.0-37.0); Mean Corpuscular Hgb 29.4 pg (27.0-31.0); Mean Corpuscular Volume 89.4 fL (81.0-99.0); Mean Platelet Volume 10.7 fL (7.4-10.4); Nucleated Red Blood Cells % 0 %; Platelet Count 185 10^3/uL (130-400); Red Blood Cell Count 4.05 10^6/uL (4.20-5.40); Red Cell Dist. Width 15.5 % (11.5-14.5); White Blood Cell Count 8.1 10^3/uL (4.8-10.8)
[2023-11-14] MEDS: DUONEB 3 ML INH ×4 (07:23→21:00)
[2023-11-14] MEDS: PULMICORT 0.5 MG INH (07:23)
[2023-11-14 07:30] VITALS: BP 143/61
[2023-11-14 07:42] LABS: Blood Urea Nitrogen 25 mg/dl (7-17); Calcium 8.5 mg/dl (8.4-10.2); Carbon Dioxide 35 mmol/L (22-30); Chloride 102 mmol/L (98-107); Estimated Creatinine Clearance 75 ml/min; Glucose 186 mg/dl (70-99); Potassium 4.1 mmol/L (3.5-5.1); Sodium 140 mmol/L (135-145); eGFR > 60.00
[2023-11-14] MEDS: MUCINEX PO ×2 (08:36→19:45)
[2023-11-14] MEDS: PROTONIX 40 MG PO (08:36)
[2023-11-14] MEDS: SINGULAIR 10 MG PO (08:36)
[2023-11-14] MEDS: BUMEX 1 MG PO ×2 (08:36→16:08)
[2023-11-14] MEDS: ELIQUIS 5 MG PO ×2 (08:36→19:51)
[2023-11-14] MEDS: DELTASONE 40 MG PO (08:36)
[2023-11-14] MEDS: ZESTRIL 5 MG PO (08:36)
[2023-11-14] MEDS: VIBRAMYCIN 100 MG PO ×2 (08:37→19:52)
[2023-11-14] MEDS: PROCARDIA XL (EXTENDED RELEASE) 30 MG PO (08:48)
--- NOTE | 2023-11-14 13:23 | W.PN.HOSP.TC ---
Today's Communication/Plan
-
see note
Assessment / Plan
Assessment / Plan
# Acute hypoxic respite insufficiency -resolved
COPD flare up
-Chest x-ray with no acute cardiopulmonary process
-COVID/flu neg.
-Switch to oral steroid
-Some of the wheezing originating from pharyngeal level as well on exam. Denies of history of any vocal cord injury/surgery/dysphonia. ENT asked to eval.
-patient cleard ST eval although reported to have some difficulty with food/pills, VSE ordered.
# Lactic acidosis
- presumed type B, no concern sepsis
#Hyperlipidemia
-Continue statin.
#h/o Pulmonary emboli
- Continue with Eliquis.
# Essential Hypertension
HTN urgency
-maintain on Norvasc/lisinopril
-Adding oral Procardia and IV hydralazine for as needed
# History of congestive heart failure
-Patient not in acute exacerbation
-Bumex continued
-Daily weight
# Hypothyroidism
-Levothyroxine continued
# GERD
-Omeprazole continued
DVT prophylaxis: On Eliquis.
CODE STATUS: Full code.
Anticipated Discharge: Within 24 hours
Subjective/Interval History
-
Date of Service: November 14, 2023
Continues to have some stridor probably coming from neck
Not hypoxic
Objective Data
-
Labs:
Laboratory Results
11/14/23
06:32
WBC 8.1
Hgb 11.9 L
Hct 36.2 L
Plt Count 185
Sodium 140
Potassium 4.1
Chloride 102
Carbon Dioxide 35 H
BUN 25 H
Creatinine 0.8
Glucose 186 H
Calcium 8.5
Vital Signs:
Vital Signs
Temp Pulse Resp BP Pulse Ox
97.6 F 65 20 143/61 97
11/14/23 07:30 11/14/23 11:20 11/14/23 11:20 11/14/23 08:48 11/14/23 11:20
I&O
11/13/23 11/14/23 11/15/23
06:59 06:59 06:59
Intake Total 1110 / 1110 1560 / 1560
Balance 1110 / 1110 1560 / 1560
Review of Systems
-
Respiratory: Reports No Symptoms
Cardiac: Reports No Symptoms
Abdomen/GI: Reports No Symptoms
Physical Exam
-
General: Obese
HEENT: Oxygen and Other (stridor on neck exam)
Respiratory: Clear to Auscultation
Cardiac: Regular Rhythm and S1/S2; Negative Murmur or Rub
GI: Soft and Nontender
Musculoskeletal: No Edema
Neuro: Awake, Alert, Oriented, Nonfocal/Grossly Intact and Other (Paraplegic)
Psych: Calm
[2023-11-14 15:08] VITALS: BP 135/56
[2023-11-14] MEDS: PROCARDIA XL (EXTENDED RELEASE) PO ×2 (19:53→19:57)
--- NOTE | 2023-11-14 19:57 | PTCARENOTE ---
Unable to crush procardia XL- attempted to give to patient multiple times whole in applesauce- medication dissolving in patients mouth, pt spitting medication back out at RN. Pt refusing at this time. Dissolving pill removed from pts mouth. BP
147/61 HR 75.
[2023-11-14] MEDS: LIPITOR 80 MG PO (23:08)
[2023-11-14] MEDS: NORVASC 10 MG PO (23:08)
[2023-11-14 23:30] VITALS: BP 145/58
[2023-11-15] MEDS: SYNTHROID 25 MCG PO (04:30)
[2023-11-15] MEDS: APRESOLINE 10 MG IV (04:31)
[2023-11-15 06:00] VITALS: BMI 37.3
[2023-11-15 06:03] VITALS: BP 167/64
[2023-11-15 07:28] VITALS: BP 150/58
[2023-11-15] MEDS: DUONEB 3 ML INH ×3 (07:28→15:19)
[2023-11-15] MEDS: ELIQUIS 5 MG PO (08:09)
[2023-11-15] MEDS: DELTASONE 40 MG PO (08:10)
[2023-11-15] MEDS: PROTONIX 40 MG PO (08:10)
[2023-11-15] MEDS: PROCARDIA XL (EXTENDED RELEASE) PO (08:10)
[2023-11-15] MEDS: MUCINEX 600 MG PO (08:10)
[2023-11-15] MEDS: BUMEX 1 MG PO (08:10)
[2023-11-15] MEDS: ZESTRIL 5 MG PO (08:11)
[2023-11-15] MEDS: VIBRAMYCIN 100 MG PO (08:11)
[2023-11-15] MEDS: SINGULAIR 10 MG PO (08:11)
[2023-11-15 08:18] LABS: % Eosinophils 0.3 % (0-6); % Immature Granulocytes 0.3 % (0-0.5); % Lymphocytes 41.1 % (20.5-51.1); % Monocytes 7.1 % (1.7-9.3); % Neutrophils 51.2 % (42.2-75.2); Absolute Lymphocytes 3.6 10^3/uL (1.2-3.4); Absolute Monocytes 0.6 10^3/uL (0.1-0.6); Absolute Neutrophils 4.5 10^3/uL (1.4-6.5); Hematocrit 38.3 % (37.0-47.0); Hemoglobin 12.5 g/dL (12.0-16.0); Mean Corp Hgb Conc. 32.6 g/dL (33.0-37.0); Mean Corpuscular Hgb 29.6 pg (27.0-31.0); Mean Corpuscular Volume 90.5 fL (81.0-99.0); Mean Platelet Volume 10.7 fL (7.4-10.4); Nucleated Red Blood Cells % 0.2 %; Platelet Count 180 10^3/uL (130-400); Red Blood Cell Count 4.23 10^6/uL (4.20-5.40); Red Cell Dist. Width 15.4 % (11.5-14.5); White Blood Cell Count 8.9 10^3/uL (4.8-10.8)
[2023-11-15 09:11] LABS: Blood Urea Nitrogen 26 mg/dl (7-17); Calcium 8.7 mg/dl (8.4-10.2); Carbon Dioxide 30 mmol/L (22-30); Chloride 103 mmol/L (98-107); Estimated Creatinine Clearance 84 ml/min; Glucose 152 mg/dl (70-99); Potassium 3.8 mmol/L (3.5-5.1); Sodium 139 mmol/L (135-145); eGFR > 60.00
--- NOTE | 2023-11-15 09:49 | W.PN.HOSP.TC ---
Today's Communication/Plan
-
Stable for discharge today
Assessment / Plan
Assessment / Plan
# Acute hypoxic respite insufficiency -resolved
COPD flare up
-Chest x-ray with no acute cardiopulmonary process
-COVID/flu neg.
-Now on oral prednisone, medically stable for discharge on prednisone taper, then can resume prednisone 5 mg p.o. daily
-Some of the wheezing originating from pharyngeal level as well on exam. Denies of history of any vocal cord injury/surgery/dysphonia
-Appreciate ENT input, bedside laryngoscopy negative for laryngeal lesions. VSE negative for aspiration, cleared for regular solid with thin liquids
-Medically stable for discharge
# Elevated lactic acid without acidosis
Lactic acid now normalized
#Hyperlipidemia
-Continue statin.
#h/o Pulmonary emboli
- Continue with Eliquis.
# Essential Hypertension
HTN urgency
-maintain on Norvasc/lisinopril
-Adding oral Procardia and IV hydralazine for as needed
# History of congestive heart failure
-Patient not in acute exacerbation
-Bumex continued
-Daily weight
# Hypothyroidism
-Levothyroxine continued
# GERD
-Omeprazole continued
DVT prophylaxis: On Eliquis
CODE STATUS: Full code
Physical Exam
General: Obese, no acute distress
HEENT: Normocephalic, Atraumatic, EOMI, MMM
Respiratory: Clear to Auscultation bilaterally
Cardiac: Normal S1/S2, Regular Rate and Rhythm
GI: Soft, Nontender, Nondistended, Normal Bowel Sounds
Extremities: No Clubbing, Cyanosis, or Edema
Neuro: Nonfocal/Grossly Intact
Psych: Calm, Cooperative
Derm: No Visible lesions
Anticipated Discharge: Today
Subjective/Interval History
-
Date of Service: November 15, 2023
Patient feels well. Denies chest pain, shortness of breath, palpitations. No problems eating. No fever, no vomiting.
Objective Data
-
Labs:
Laboratory Results
11/15/23
07:45
WBC 8.9
Hgb 12.5
Hct 38.3
Plt Count 180
Sodium 139
Potassium 3.8
Chloride 103
Carbon Dioxide 30
BUN 26 H
Creatinine 0.7
Glucose 152 H
Calcium 8.7
Vital Signs:
Vital Signs
Temp Pulse Resp BP Pulse Ox
98.3 F 82 16 150/58 96
11/15/23 07:28 11/15/23 07:29 11/15/23 07:29 11/15/23 07:28 11/15/23 08:54
I&O
11/14/23 11/15/23 11/16/23
06:59 06:59 06:59
Intake Total 1560 / 1560 960 / 960
Balance 1560 / 1560 960 / 960
--- NOTE | 2023-11-15 10:08 | CM ---
Addendum entered by Cherie Cortez 11/15/23 16:06:
CM spoke with patients son, Roosevelt, , discussed patient is clear for discharge. Roosevelt reports he will call patients caregiver, caregiver will provide transportation home. Patients son asked that discharge paperwork be given to magistrate assistant.
Addendum entered by Cherie Cortez 11/15/23 12:10:
IMM reviewed with patient and caregiver, signed, placed in chart.
Original Note:
Patient seen with caregiver, inquiring about a discharge. Per chart, VSE ordered. CM will continue to follow for discharge planning needs.
Plan; return home with 21/12 caregiver when stable.
--- NOTE | 2023-11-15 10:42 | PTCARENOTE ---
Pt refused scheduled Procardia as med instruction is 'do not crush.' Pills crushed in applesauce. Pt initially intolerant to administration due to taste. More apple sauce added and patient slowly able to tolerate. No sign of aspiration observed.
--- NOTE | 2023-11-15 12:13 | CON.MD ---
Consultation - Medical
-
Pt seen and full consult dictated.
Laryngoscopy performed; no laryngeal lesions noted.
--- NOTE | 2023-11-15 13:57 | PTOTSP ---
Video Swallow Study
Summary: Patient presents with at least mild but functional oral stage and functional pharyngeal stages of swallowing. No aspiration occurred.
Recommend:
1. Regular (pick soft/moist foods), Thin Liquids
2. Medications whole in puree
3. Strategies: supervision with meals, upright during meals and at least 30 minutes after, slow rate, single sips, small bites, moisten dry foods
4. No further dysphagia therapy with an STREET LIGHT INSPECTOR warranted at this time.
--- NOTE | 2023-11-15 14:35 | W.DCSUMMARY ---
Discharge Summary
Discharge Data
Date of Admission: 11/10/23
Date of Discharge: 11/15/23
-
Pending Results: No
Hospital Course
Discharge diagnosis:
Acute hypoxic respiratory insufficiency, resolved
Acute on chronic pulmonary disease exacerbation
Elevated lactic acid without acidosis
Benign essential hypertension
History of pulmonary emboli on Eliquis
Hyperlipidemia
History of congestive heart failure
Hypothyroidism
Gastroesophageal reflux disease
Consults: ENT
Hospital course:
77-year-old female with a past medical history of asthma, COPD, CHF, hypertension, hyperlipidemia, type 2 diabetes, and [place] presented with cough and dyspnea with activity. Chest x-ray was negative, she was COVID-negative, influenza negative. She
was found to have mild hypoxia. She was admitted for acute on chronic COPD exacerbation. She is usually on prednisone 5 mg p.o. daily. She was treated with IV steroids, doxycycline, and bronchodilators.
She was seen in conjunction with speech pathology. VSE was negative for aspiration, she was cleared for a regular diet with thin liquids. She was seen in conjunction with ENT, bedside laryngoscopy is negative for laryngeal lesions.
Patient's blood pressure was elevated. She is continued on amlodipine 10 mg at bedtime. She is on lisinopril 5 mg daily. She will be discharged on an increased dose of lisinopril, 10 mg twice a day.
After several days, her cough improved dramatically. Her shortness of breath resolved, her hypoxia resolved. She was transitioned to oral steroids. She is medically stable for discharge on a prednisone taper, then to resume her previous
prednisone dose of 5 mg p.o. daily. Patient needs to follow-up with her primary care doctor in 1 week.
Disposition: Home with 21/12 caregiver
Discharge planning: Required 35 minutes
Discharge Plan
-
Patient Disposition: Home (Routine Discharge)
Discharge Diagnosis/Procedures: Acute hypoxic respiratory insufficiency, acute on chronic obstructive pulmonary disease exacerbation
Condition: Fair
Diet: Regular
Activity: As tolerated
Activity Restrictions/Additional Instructions:
Please continue taking prednisone:
40 mg daily x3 days, 30 mg daily x3 days,
20 mg daily x3 days, 10 mg daily x3 days,
then resume previous 5 mg daily
Your blood pressure in the hospital was high.
Your lisinopril was increased to 10 mg twice a day.
Please follow-up with your primary care doctor for blood pressure check.
Referrals:
Panfilo Ngo MD [Family Provider] - in one week
Prescriptions:
New
lisinopril 10 mg tablet
10 mg PO BID Qty: 60 0RF
prednisone 10 mg Tablet
See Rx Instructions .ROUTE .COMPLEX Qty: 30 0RF
Rx Instructions:
Take By Mouth:
40 mg daily x3 days, 30 mg daily x3 days,
20 mg daily x3 days, 10 mg daily x3 days,
then resume previous 5 mg daily
Continued
atorvastatin 80 mg Tablet
80 mg PO HS
ipratropium-albuterol 0.5 mg-3 mg(2.5 mg base)/3 mL Solution For Nebulization
3 ml INHALATION R BID
Patient Comments:
11/10/2023, prescribed QID but pt. takes BID.
prednisone 5 mg Tablet
5 mg PO DAILY
amlodipine 5 mg tablet
10 mg PO HS
levothyroxine 25 mcg Tablet
25 mcg PO DAILY
omeprazole 20 mg Capsule,Delayed Release(Dr/Ec)
20 mg PO DAILY
budesonide 0.5 mg/2 mL Suspension For Nebulization
0.5 mg INHALATION R BID
bumetanide 1 mg Tablet
1 mg PO BID
montelukast 10 mg Tablet
10 mg PO DAILY
ergocalciferol (vitamin D2) 1,250 mcg (50,000 unit) Capsule
1,250 mcg PO MOFR@0800
guaifenesin 600 mg Tablet Extended Release 12hr
600 mg PO BID
albuterol sulfate 90 mcg/actuation Hfa Aerosol Inhaler
2 puff INHALATION R BIDPRN PRN (Reason: sob/wheezing)
Eliquis 5 mg Tablet
5 mg PO BID
Discontinued
azithromycin 250 mg Tablet
250 mg PO DAILY
lisinopril 2.5 mg Tablet
5 mg PO DAILY
Discharge Orders:
Discharge Patient (As Directed); Ordered 11/15/23
Ordered By: Landon Maloney
Discharge Date and Time
Discharge Date/Time: 11/15/23 17:04
Print Language: MONTENEGRIN
[2023-11-15 15:55] VITALS: BP 145/71
== END 2023-11-15 17:04 | disposition home or self-care (01) | DRG 191 ==
LOC: 4 EAST ACU 15:36
PROVIDERS: Registered Nurse; ADMITTING PHYSICIAN Hospitalist; ATTENDING PHYSICIAN Family Medicine; EMERGENCY PHYSICIAN Emergency Medicine; FAMILY PHYSICIAN Family Medicine; OTHER PHYSICIAN Otolaryngology
DX: J44.1 Chronic obstructive pulmonary disease with (acute) exacerbation (principal); E87.20 Acidosis, unspecified; I50.32 Chronic diastolic (congestive) heart failure; J45.901 Unspecified asthma with (acute) exacerbation; I24.9 Acute ischemic heart disease, unspecified; I11.0 Hypertensive heart disease with heart failure; I25.10 Atherosclerotic heart disease of native coronary artery without angina pectoris; E03.9 Hypothyroidism, unspecified; K21.9 Gastro-esophageal reflux disease without esophagitis; E66.01 Morbid (severe) obesity due to excess calories; R06.89 Other abnormalities of breathing; R09.02 Hypoxemia; I16.0 Hypertensive urgency; R49.0 Dysphonia; E11.36 Type 2 diabetes mellitus with diabetic cataract; E78.00 Pure hypercholesterolemia, unspecified; R26.2 Difficulty in walking, not elsewhere classified; I25.2 Old myocardial infarction; Z87.01 Personal history of pneumonia (recurrent); Z11.52 Encounter for screening for COVID-19; Z79.01 Long term (current) use of anticoagulants; Z79.890 Hormone replacement therapy; Z79.52 Long term (current) use of systemic steroids; Z88.0 Allergy status to penicillin; Z88.1 Allergy status to other antibiotic agents; Z91.040 Latex allergy status; Z68.37 Body mass index [BMI] 37.0-37.9, adult; Z86.711 Personal history of pulmonary embolism
CPT/HCPCS: 71046; 74230; 80048; 80053; 83605; 83880; 84484; 85025; 87040; 87502; 87811; 92610; 92611; 93005; 94640; 96365; 96375; 97162; 99285

== ENCOUNTER 2023-12-07 11:33 | Outpatient (RCR) | payer MEDICARE, OTHER, SELFPAY ==
[2023-12-07] MEDS: XOLAIR 150 MG SC ×2 (11:55)
[2023-12-07 11:59] VITALS: BP 145/67
== END 2023-12-08 10:37 | disposition home or self-care (01) ==
LOC: OID 11:33
PROVIDERS: ATTENDING PHYSICIAN Internal Medicine Critical Care Medicine; FAMILY PHYSICIAN Family Medicine
DX: J45.50 Severe persistent asthma, uncomplicated (principal); D72.10 Eosinophilia, unspecified; J45.901 Unspecified asthma with (acute) exacerbation; J44.9 Chronic obstructive pulmonary disease, unspecified; J42 Unspecified chronic bronchitis; J98.4 Other disorders of lung
CPT/HCPCS: 96372; J2357

== ENCOUNTER 2024-01-04 11:03 | Outpatient (RCR) | payer MEDICARE, OTHER, SELFPAY ==
[2024-01-04 11:55] VITALS: BP 146/75
[2024-01-04] MEDS: XOLAIR 150 MG SC ×2 (12:01→12:02)
== END 2024-01-05 08:24 | disposition home or self-care (01) ==
LOC: OID 11:03
PROVIDERS: ATTENDING PHYSICIAN Internal Medicine Critical Care Medicine; FAMILY PHYSICIAN Family Medicine
DX: J45.50 Severe persistent asthma, uncomplicated (principal); J45.901 Unspecified asthma with (acute) exacerbation
CPT/HCPCS: 96372; J2357

== ENCOUNTER 2024-02-01 11:19 | Outpatient (RCR) | payer MEDICARE, OTHER, SELFPAY ==
[2024-02-01 11:25] VITALS: BP 152/47
[2024-02-01] MEDS: XOLAIR 150 MG SC ×2 (11:32→11:33)
== END 2024-02-01 14:12 | disposition home or self-care (01) ==
LOC: OID 11:19
PROVIDERS: ATTENDING PHYSICIAN Internal Medicine Critical Care Medicine; FAMILY PHYSICIAN Family Medicine
DX: J45.50 Severe persistent asthma, uncomplicated (principal)
CPT/HCPCS: 96372; J2357

== ENCOUNTER 2024-03-07 11:11 | Outpatient (RCR) | payer MEDICARE, OTHER, SELFPAY ==
[2024-03-07 11:31] VITALS: BP 149/63
[2024-03-07] MEDS: XOLAIR 150 MG SC ×2 (11:48→11:49)
== END 2024-03-07 15:31 | disposition home or self-care (01) ==
LOC: OID 11:11
PROVIDERS: ATTENDING PHYSICIAN Internal Medicine Critical Care Medicine; FAMILY PHYSICIAN Family Medicine
DX: J45.50 Severe persistent asthma, uncomplicated (principal); J45.901 Unspecified asthma with (acute) exacerbation; D72.10 Eosinophilia, unspecified; J44.9 Chronic obstructive pulmonary disease, unspecified; J98.4 Other disorders of lung
CPT/HCPCS: 96372; J2357

== ENCOUNTER 2024-04-04 11:26 | Outpatient (RCR) | payer MEDICARE, OTHER, SELFPAY ==
[2024-04-04 11:39] VITALS: BP 152/70
[2024-04-04] MEDS: XOLAIR 150 MG SC ×2 (11:44→11:45)
== END 2024-04-05 10:10 | disposition home or self-care (01) ==
LOC: OID 11:26
PROVIDERS: ATTENDING PHYSICIAN Internal Medicine Critical Care Medicine; FAMILY PHYSICIAN Family Medicine
DX: J45.50 Severe persistent asthma, uncomplicated (principal); J45.901 Unspecified asthma with (acute) exacerbation; J98.4 Other disorders of lung; J42 Unspecified chronic bronchitis; D72.19 Other eosinophilia
CPT/HCPCS: 96372; J2357

== ENCOUNTER 2024-05-04 10:38 | Outpatient (RCR) | payer MEDICARE, OTHER, SELFPAY ==
[2024-05-04 10:45] VITALS: BP 148/67
[2024-05-04] MEDS: XOLAIR 150 MG SC ×2 (11:01→11:02)
== END 2024-05-05 10:34 | disposition home or self-care (01) ==
LOC: OID 10:38
PROVIDERS: ATTENDING PHYSICIAN Internal Medicine Critical Care Medicine; FAMILY PHYSICIAN Family Medicine
DX: J45.50 Severe persistent asthma, uncomplicated (principal); J45.901 Unspecified asthma with (acute) exacerbation
CPT/HCPCS: 96372; J2357

== ENCOUNTER 2024-06-07 10:16 | Outpatient (RCR) | payer MEDICARE, OTHER, SELFPAY ==
[2024-06-07 10:37] VITALS: BP 131/42
[2024-06-07] MEDS: XOLAIR 150 MG SC ×2 (10:45→10:46)
== END 2024-06-08 10:14 | disposition home or self-care (01) ==
LOC: OID 10:16
PROVIDERS: ATTENDING PHYSICIAN Internal Medicine Critical Care Medicine; FAMILY PHYSICIAN Family Medicine
DX: J45.50 Severe persistent asthma, uncomplicated (principal); J45.901 Unspecified asthma with (acute) exacerbation
CPT/HCPCS: 96372; J2357

== ENCOUNTER 2024-07-05 10:28 | Outpatient (RCR) | payer MEDICARE, OTHER, SELFPAY ==
[2024-07-05 10:37] VITALS: BP 118/63
[2024-07-05] MEDS: XOLAIR 150 MG SC ×2 (10:43)
== END 2024-07-06 09:37 | disposition home or self-care (01) ==
LOC: OID 10:28
PROVIDERS: ATTENDING PHYSICIAN Internal Medicine Critical Care Medicine; FAMILY PHYSICIAN Family Medicine
DX: J45.50 Severe persistent asthma, uncomplicated (principal); J45.901 Unspecified asthma with (acute) exacerbation; D72.10 Eosinophilia, unspecified
CPT/HCPCS: 96372; J2357

== ENCOUNTER 2024-08-09 10:36 | Outpatient (RCR) | payer MEDICARE, OTHER, SELFPAY ==
[2024-08-09 10:45] VITALS: BP 120/84
[2024-08-09] MEDS: XOLAIR 150 MG SC ×2 (10:50→10:51)
== END 2024-08-10 12:22 | disposition home or self-care (01) ==
LOC: OID 10:36
PROVIDERS: ATTENDING PHYSICIAN Internal Medicine Critical Care Medicine; FAMILY PHYSICIAN Family Medicine
DX: J45.50 Severe persistent asthma, uncomplicated (principal); J45.901 Unspecified asthma with (acute) exacerbation
CPT/HCPCS: 96372; J2357

== ENCOUNTER 2024-09-06 10:28 | Outpatient (RCR) | payer MEDICARE, OTHER, SELFPAY ==
[2024-09-06 10:45] VITALS: BP 155/74
[2024-09-06] MEDS: XOLAIR 150 MG SC ×2 (10:50→10:51)
== END 2024-09-07 09:32 | disposition home or self-care (01) ==
LOC: OID 10:28
PROVIDERS: ATTENDING PHYSICIAN Internal Medicine Critical Care Medicine; FAMILY PHYSICIAN Family Medicine
DX: J45.50 Severe persistent asthma, uncomplicated (principal); J45.901 Unspecified asthma with (acute) exacerbation; D72.10 Eosinophilia, unspecified; J44.9 Chronic obstructive pulmonary disease, unspecified; J98.4 Other disorders of lung
CPT/HCPCS: 96372; J2357

== ENCOUNTER 2024-10-03 09:30 | Outpatient (RCR) | payer MEDICARE, OTHER, SELFPAY ==
[2024-10-03 09:45] VITALS: BP 138/69
[2024-10-03] MEDS: XOLAIR 150 MG SC ×2 (09:55→09:56)
== END 2024-10-04 09:10 | disposition home or self-care (01) ==
LOC: OID 09:30
PROVIDERS: ATTENDING PHYSICIAN Internal Medicine Critical Care Medicine; FAMILY PHYSICIAN Family Medicine
DX: J45.50 Severe persistent asthma, uncomplicated (principal); J96.01 Acute respiratory failure with hypoxia; J45.901 Unspecified asthma with (acute) exacerbation; J98.4 Other disorders of lung; J44.9 Chronic obstructive pulmonary disease, unspecified
CPT/HCPCS: 96372; J2357

== ENCOUNTER 2024-11-07 11:52 | Outpatient (RCR) | payer MEDICARE, OTHER, SELFPAY ==
[2024-11-07 12:17] VITALS: BP 187/96
[2024-11-07] MEDS: XOLAIR 150 MG SC ×2 (12:23)
== END 2024-11-08 09:08 | disposition home or self-care (01) ==
LOC: OID 11:52
PROVIDERS: ATTENDING PHYSICIAN Internal Medicine Critical Care Medicine; FAMILY PHYSICIAN Family Medicine
DX: J45.50 Severe persistent asthma, uncomplicated (principal); J45.901 Unspecified asthma with (acute) exacerbation; J42 Unspecified chronic bronchitis; J98.4 Other disorders of lung
CPT/HCPCS: 96372; J2357

== ENCOUNTER 2024-11-24 12:54 | Inpatient (IN) | payer OTHER, SELFPAY ==
[2024-11-24] VITALS (9 sets, daily range): BP systolic 135–175; BP diastolic 48–95; PULSE 82; O2SAT 100; BMI 45.8; BMI 45.1
[2024-11-24] MEDS: VENTOLIN NEBULES 2.5 MG INH (09:12)
--- NOTE | 2024-11-24 09:18 | ED.GENMED ---
History of Present Illness
General
Chief Complaint: Breathing Problem
Source: patient and ambulance crew
Exam Limitations: none
Time Seen by Provider: 11/24/24 08:54
Nursing documentation reviewed up to this point in time: agreed with
History of Present Illness
History of Present Illness:
79-year-old female hypertension COPD CHF she is anticoagulated subacute onset of shortness of breath cough fever yesterday legs are swollen, took a neb prior to EMS arriving here she is audibly wheezing with rhonchi
Past History
Past History
ED Past Medical History: Asthma, CHF, COPD, HTN, Hypercholesterolemia, NIDDM, [place] and Other (Home oxygen, pneumonia, urinary tract infections, ambulatory dysfunction, cataracts, cellulitis, history of intubation); Negative IDDM
ED Past Surgical History: Cardiac (Cardiac catheteriztion), Tonsilectomy and Other (Bilateral cataract surgery)
Social History
Tobacco: Non-smoker
Alcohol: None
Drug: None
Personal:
Living: alone (Has nurses aids coming in)
Employment: Not employed
Family History
Family History: Unable to obtain
Review of Systems
Review of Systems
All Other Systems: Not applicable
Constitutional: Reports fever and fatigue
EENT: Reports no symptoms
Respiratory: Reports cough and trouble breathing
Cardiac: Reports no symptoms
ABD/GI: Reports no symptoms
: Reports no symptoms
Musculoskeletal: Reports no symptoms
Skin: Reports no symptoms
Endocrine: Reports no symptoms
Hematologic/Lymphatic: Reports no symptoms
Phy Exam
Physical Exam
Physical Exam:
Physical Exam
General: 79 female dyspneic coughing
Neck: No jaundice
Heart: s1/s2 regular rate and rhythm, no murmur. equal radial pulses.
Lungs: Wheeze rhonchi
Abdomen: Nontender
Neuro: alert and oriented. no focal neurological deficits
Skin: no rash
Psychiatric: well kept. interactive and cooperative
Extremities: Edema is present
Scores
Heart Failure Risk
Heart Failure Risk Score: Not Applicable
Course
Orders/Labs/Results
Orders:
Orders
11/24/24 09:02
IV Insert/Care/Rem.- Treatment PRN
Albuterol Nebs [Ventolin Nebules] 2.5 mg INH R NOW STA
11/24/24 09:03
Electrocardiogram (*1) Stat
Reason for Study: Other
Other Reason for Exam: chest pain
Cardiac Monitoring- Treatment ONCE
EKG- Treatment ONCE
CR Chest - 2 Views Urgent
Comment:
Reason For Exam: sob cough
11/24/24 09:23
Basic Metabolic Panel Urgent
Complete Blood Count/With Diff Urgent
Glycohemoglobin (HgbA1c) Urgent
Magnesium Urgent
NT-proBNP Urgent
TSH Urgent
Troponin I Urgent
11/24/24 11:02
Dexamethasone Sod Phosphate [Decadron] 10 mg IV NOW STA
Doxycycline [Vibramycin] 100 mg PO NOW STA
11/24/24 11:30
Ipratropium/Albuterol Sulfate [Duoneb] 3 ml INH R NOW STA
11/24/24 12:20
Add On- LAB Stat
Tests Added?: Hba1c
11/24/24 12:26
Admit/Transfer Patient As Directed
Co-Sign Provider:
Level of Care: Inpatient admission
Assign to:: Medical/Surgical
Physician / Group: Bruna
Diagnosis: COPD/asthma exac
Reason for Hospitalization: COPD/asthma exac
Expected length of stay greater than two midnights?: Yes
ELOS- Estimated Length of Stay in days: 4
I certify the patient meets the requirements for IP care: Yes
PRN Pain Medication Management As Directed
May give lesser potent ordered pain med per pt: Yes
preference::
Protocol:: Medication orders for pain may be administered in a
manner that supports deferring to patient preference
when the pt is:
- Requesting an ordered lesser potent pain medication.
Least to most potent pain medications are defined
as: acetaminophen < NSAID < tramadol < opioids
(morphine, oxycodone, hydromorphone).
- Requesting a lesser dose of the same medication IF
ORDERED.
- Requesting a less intrusive route of administration
if both routes are prescribed by the provider (PO <
IV).
11/24/24 12:28
Code Status As Directed
Resuscitation Status: Full Code
11/24/24 13:55
Dextrose 50%-Water [Dextrose 50% Syringe] 12.5 grams IV [id number] PRN
Glucagon [GlucaGen] 1 mg IM PRN PRN
Ipratropium/Albuterol Sulfate [Duoneb] 3 ml INH R Q4HPRN PRN
11/24/24 13:55
PULMONARY CONSULT Routine
Consulting Provider: Lisa Edmond
Was physician already notified: Yes
Reason for consult: COPD/asthma exac
Activity As Directed
Activity Level: With Assistance
Bedside Glucose Monitoring As Directed
Frequency: AC&HS
Additional Instructions:: Change to q6h if pt on TPN, tube feeding or not eating
Intake/ Output As Directed
Frequency: Per unit guidelines
Vital Signs As Directed
Frequency: Per unit guidelines
Copd Education [RESP] Routine
O2 Therapy [RESP] Routine
Nasal Cannula Liter Flow: 2 LPM
Titrate/Wean O2 to maintain O2 sat greater than (%): 91
Special Instructions: adjust, if necessary, to avoid hyperoxia in CO2 retainers.
Use High Flow O2 if necessary
Ot Eval And Treat Routine
Pt Eval And Treat Routine
Activity Level: With Assistance
11/24/24 Dinner
1800 calorie (15 carb) Diabetic
At Your Request: Full Participation
Does patient need a safe tray?: No
Fluid Restriction: 1200 mL/day (40 oz)
11/24/24 16:00
Bumetanide [Bumex] 1 mg PO BID AT 0800,1600
Ipratropium/Albuterol Sulfate [Duoneb] 3 ml INH R QID
11/24/24 16:30
Insulin Aspart Corrective Low [Novolog Flexpen-Low Resistance] See Protocol SC AC
11/24/24 20:00
Apixaban [Eliquis] 5 mg PO BID
Budesonide [Pulmicort] 0.5 mg INH R BID
Dexamethasone Sod Phosphate [Decadron] 4 mg IV Q8H
Guaifenesin [Mucinex] 600 mg PO BID
11/24/24 22:00
Amlodipine [Norvasc] 10 mg PO HS
Atorvastatin [Lipitor] 80 mg PO HS
11/25/24 06:00
Basic Metabolic Panel IN AM
Complete Blood Count/With Diff IN AM
11/25/24 08:00
Azithromycin [Zithromax] 250 mg PO DAILY
Glimepiride [Amaryl] 2 mg PO DAILY
Levothyroxine [Synthroid] 25 mcg PO DAILY
Lisinopril [Zestril] 5 mg PO DAILY
Montelukast Sodium [Singulair] 10 mg PO DAILY
Pantoprazole [Protonix] 40 mg PO DAILY
11/27/24 08:00
Ergocalciferol [Drisdol (Vitamin D2)] 50,000 units PO MOFR@0800
Abnormal Lab Results
11/24/24
09:23
RBC 4.03 L 10^6/uL
(4.20-5.40)
Hgb 11.5 L g/dL
(12.0-16.0)
Hct 36.3 L %
(37.0-47.0)
MCHC 31.7 L g/dL
(33.0-37.0)
RDW 17.5 H %
(11.5-14.5)
Absolute Lymphs (auto) 3.7 H 10^3/uL
(1.2-3.4)
Neutrophils % 36.6 L %
(42.2-75.2)
Eosinophils % 9.4 H %
(0-6)
Chloride 108 H mmol/L
(98-107)
Glucose 125 H mg/dl
(70-99)
Hemoglobin A1c 6.5 H %
(4.0-5.6)
11/24/24 09:23
11/24/24 09:23
Vital Signs
Initial and Last Documented VS:
Initial Vital Signs
Pulse Resp BP Pulse Ox
77 22 149/91 97
11/24/24 09:00 11/24/24 09:00 11/24/24 09:00 11/24/24 09:00
Last Documented Vital Signs
Temp Pulse Resp BP Pulse Ox
98.6 F 78 15 160/65 99
11/24/24 14:18 11/24/24 15:44 11/24/24 15:44 11/24/24 14:18 11/24/24 15:44
MDM/Problems Addressed
Differential Diagnosis Includes:
CHF COPD pneumonia less likely PE as she is anticoag
MDM/Problems Addressed:
Cough shortness of breath
Chronic conditions affecting care: Cardiomyopathy, COPD and Asthma
Acute Exacerbation and/or Progression of Chronic Illness: Cardiomyopathy, COPD and Asthma
*Radiology
Radiology exam reviewed: preliminary read by ED provider
*Pulse Oximetry
SaO2: 97
Oxygen Mode of Delivery: Room air
Patient hypoxic: no
*EKG
Interpreted by ED Provider?: Yes
Interpretation: abnormal
Comparison EKG: no comparison EKG present
Heart Rate: 78
Rate: normal
Rhythm: sinus
Ischemia: non-specific ST changes
*Parts Counter Specialist Interpretation
Rate: normal
Interpretation: normal
Heart Rate: 78
Rhythm: sinus
*Critical Care Note
Total Time (30-74mins, 75-104mins- exclusive of procedures): Not Applicable
Update Note
Update Note:
11 AM, update chest x-ray noted formal report noted, proBNP and white count noted will give steroid and doxycycline see how she is responding to her nebulizer
1130 still wheezing and rhonchorous, low threshold to admit due to age severity of illness multiple comorbid conditions
ED Attending Note
-
Portions of this chart may have been created with voice recognition software.� Occasional wrong word or��sound alike� substitutions may have occurred due to the inherent limitations of voice recognition software.
Discharge Plan
Departure
Patient Disposition: Admit
Date of Disposition: 11/24/24
Time of Disposition: 11:34
Admit to: Med/Surg
Presentation/result/management discussed w/ accepting MD/DO: Hospitalist
Patient with high blood pressure during this ER visit?: No
Condition: Fair
Covid-19: Not Applicable
Discharge Problem:
COPD exacerbation, Moderate persistent asthma, Chronic diastolic (congestive) heart failure, Chronic diastolic heart failure
Interventions
Interventions:
*Risk Screen - Suicide Last Done: 11/24/24 09:05
*General Assessment Last Done: 11/24/24 09:05
*Neglect/Abuse Screening Last Done: 11/24/24 09:05
*ED- Fall Risk Assessment Last Done: 11/24/24 09:05
*ED COVID-19 Vaccine History Last Done: 11/24/24 09:05
*Nursing Disposition Last Done: 11/24/24 13:55
ED- Cardiac Assessment Last Done: 11/24/24 09:36
ED- Pulmonary Assessment Last Done: 11/24/24 13:24
Discharge Date and Time
Discharge Date/Time: 11/24/24 13:55
[2024-11-24 09:33] LABS: Hematocrit 36.3 % (37.0-47.0); Hemoglobin 11.5 g/dL (12.0-16.0); Mean Corp Hgb Conc. 31.7 g/dL (33.0-37.0); Mean Corpuscular Volume 90.1 fL (81.0-99.0); Nucleated Red Blood Cells % 0 %; Platelet Count 220 10^3/uL (130-400); Red Cell Dist. Width 17.5 % (11.5-14.5)
[2024-11-24 10:04] LABS: Blood Urea Nitrogen 11 mg/dl (7-17); Calcium 9.1 mg/dl (8.4-10.2); Carbon Dioxide 28 mmol/L (22-30); Chloride 108 mmol/L (98-107); Estimated Creatinine Clearance 81 ml/min; Glucose 125 mg/dl (70-99); Magnesium 1.9 mg/dl (1.6-2.3); Sodium 141 mmol/L (135-145); eGFR > 60.00
[2024-11-24 10:07] LABS: Troponin I < 0.012 ng/ml
[2024-11-24 10:29] LABS: TSH 4.59 uIU/ml (0.47-4.68)
--- NOTE | 2024-11-24 10:37 | PHANOTE ---
11/24/2024, caregiver handed me a morning pill pack from [facility] and was able to confirm pt.'s morning meds. with me; however, she did not know whether pt. is taking 10 mg of Amlodipine HS, 80 mg of Atorvastatin HS, Guaifenesin ER 600
mg BID, 5 mg of Lisinopril Daily, Ipratropium-Albuterol nebulizer Q6HPRN, and Budesonide nebulizer BID. I used pharmacy records to put pt.'s med. list together; pt.'s ecw records are out of date.
--- NOTE | 2024-11-24 11:31 | EDRN ---
Dr. Friedman said to place pt on 2lpm of oxygen via NC at this time for comfort.
[2024-11-24] MEDS: DUONEB 3 ML INH ×3 (11:35→19:37)
[2024-11-24] MEDS: DECADRON 10 MG IV (11:35)
[2024-11-24] MEDS: VIBRAMYCIN 100 MG PO (11:36)
--- NOTE | 2024-11-24 11:46 | HPS.HSE ---
Addendum entered and electronically signed by Bruce Mcfarland MD 11/24/24 12:33:
Corrections to physical exam:
Pulm: B/L wheezes with dec AE
Skin: 1+ B/L LE dependent edema
Original Note:
Family Physician
-
Family Physician: NOT KNOW UNKNOWN - PT DOES
Chief Complaint
-
SOB
History of Present Illness
79-year-old female with a past medical history of:
COPD
Hyperlipidemia
Pulmonary emboli
Essential Hypertension
Chronic HFpEF
Hypothyroidism
GERD
who p/w CC SOB. The patient is an extremely poor historian. I did discuss the case with Dr. Friedman and pt's RN. Both conveyed that the patient was giving inconsistent answers to questions. Patient states to me she has had shortness of breath for
couple days. She says she has had cough with minimally productive sputum. Denies any other acute complaints. She is an extremely poor historian and really cannot give any further history.
Medical History
Past Medical History
Past Medical History: Reports Other (COPD Hyperlipidemia Pulmonary emboli Essential Hypertension Chronic HFpEF Hypothyroidism GERD)
Past Surgical History: Reports None and Other
Additional Past Surgical History:
N/A
Social History
Tobacco: Non-smoker
Alcohol: None
Drug: None
Family History
Family History: Not pertinent
Allergies / Home Medications
Allergies reflects when Allergies were last updated in [facility].
Home Medications with original date entered in [facility]
Allergy/Medication List:
Allergies
Allergy/AdvReac Type Severity Reaction Status Date / Time
Cephalosporins Allergy Unknown Verified 11/24/24 09:01
house dust Allergy Shortness Verified 11/24/24 09:01
of
Breath/BREAK
OUT
latex Allergy Hypersensitivity, Verified 11/24/24 09:01
irritation
mold Allergy SHORTNESS Verified 11/24/24 09:01
OF
BREATH/BREAK
OUT
penicillin G Allergy Hives Verified 11/24/24 09:01
Penicillins Allergy Itching Verified 11/24/24 09:01
Home Medications
amlodipine 5 mg tablet 10 mg PO HS 11/10/23
apixaban 5 mg tablet (Eliquis) 5 mg PO BID 11/10/23
atorvastatin 80 mg tablet 80 mg PO HS 11/10/23
bumetanide 1 mg tablet 1 mg PO BID 11/10/23
ergocalciferol (vitamin D2) 1,250 mcg (50,000 unit) capsule 1,250 mcg PO MOFR@0800 11/10/23
guaifenesin 600 mg tablet, extended release 12 hr 600 mg PO BID 11/10/23
levothyroxine 25 mcg tablet 25 mcg PO DAILY 11/10/23
montelukast 10 mg tablet 10 mg PO DAILY 11/10/23
omeprazole 20 mg capsule,delayed release 20 mg PO DAILY 11/10/23
prednisone 5 mg tablet 5 mg PO DAILY 11/10/23
azithromycin 250 mg tablet 250 mg PO DAILY 12/07/23
budesonide 0.5 mg/2 mL suspension for nebulization 0.5 mg inhalation R BID 11/24/24
glimepiride 2 mg tablet 2 mg PO DAILY 11/24/24
ipratropium 0.5 mg-albuterol 3 mg (2.5 mg base)/3 mL nebulization soln 3 ml inhalation R Q6HPRN PRN sob 11/24/24
lisinopril 2.5 mg tablet 5 mg PO DAILY 11/24/24
Review of Systems
-
History Source: Patient
A 12 point ROS was completed and negative except as noted: Yes
Physical Exam
Vital Signs
Vital Signs
Temp Pulse Resp BP Pulse Ox
98.3 F 85 21 146/95 98
11/24/24 09:01 11/24/24 11:15 11/24/24 11:15 11/24/24 11:00 11/24/24 11:30
Physical Exam
General: Other (.)
Laboratory Results
-
11/24/24 09:23
11/24/24 09:23
Laboratory Results
Total Bilirubin Cancelled 11/24/24 09:23
AST Cancelled 11/24/24 09:23
ALT Cancelled 11/24/24 09:23
Alkaline Phosphatase Cancelled 11/24/24 09:23
Troponin I < 0.012 ng/ml 11/24/24 09:23
Impression/Plan
-
Gen: NAD, AAOx3.
Eyes: EOMI, PERRLA, no scleral icterus.
Neck: supple.
CV: RRR, +S1/S2, no m/r/g.
Resp: CTAB, no rales, wheezes, or rhonchi.
Abd: +BS, soft, NT, ND
Skin: No rashes.
Neuro: CN 2-12 intact, non-focal.
Psych: Normal mood and affect.
CXR: No radiographic evidence of acute cardiopulmonary abnormality.
Acute COPD/asthma exacerbation:
-CXR clear
-on 2L NC in ER
-cont IV Decadron, duonebs, pulmicort
-c/s pulm
-cont Singulair
-Clearly patient's morbid obesity is contributing to her acute hypoxemic respiratory insufficiency. She likely has obstructive sleep apnea/obesity hypoventilation syndrome as well as extrathoracic restrictive lung disease due to her morbid obesity.
Other problems:
Morbid obesity due to excess calories
Hyperlipidemia: cont statin
h/o Pulmonary emboli: cont Eliquis
Essential HTN: cont Norvasc/ACEi
Chronic HFpEF: [id number], Trop < 0.012, CXR without pulm edema
Hypothyroidism: cont Levoxyl
GERD: cont PPI
FULL/Eliquis
--- NOTE | 2024-11-24 12:03 | EDRN ---
Dr. Mcfarland in room w/ pt at this time.
[2024-11-24 13:01] LABS: Glycohemoglobin (HgbA1c) 6.5 % (4.0-5.6)
--- NOTE | 2024-11-24 13:10 | EDRN ---
Anabel brought pt food from [employer] and pt is eating hamburger, latvian fries, and other fried food w/ orange soda.
--- NOTE | 2024-11-24 14:10 | PTCARENOTE ---
Patient admitted from ED, stood and pivoted from stretcher to bed with x1 assist and RW. AAOx3 but forgetful and poor historian. Bed alarm in place. Call go within reach.
[2024-11-24] MEDS: BUMEX 1 MG PO (16:07)
[2024-11-24 16:21] LABS: Glucose - Point of Care 271 mg/dl (70-99)
--- NOTE | 2024-11-24 16:56 | CON.PUL ---
Consultation
Consultation Request
Date/Time Consultation Requested: 11/24/2024
Date/Time Consultation Performed: 11/24/2024
Medical History
-
Chief Complaint: Cough, wheezing
History of Present Illness:
Patient unable to provide any meaningful history, information obtained from residential care officer at bedside and review of medical records.
Reportedly patient developed increasing cough and shortness of breath over last 1-2 days prior to admission. In the ED, patient was noted to be wheezing and was admitted to hospital for suspected Asthma excaerbation. Pulmonary consult was requested
for further input.
Past Medical History: Reports Other (COPD Hyperlipidemia Pulmonary emboli Essential Hypertension Chronic HFpEF Hypothyroidism GERD)
Past Surgical History: Reports None and Other
Additional Past Surgical History:
N/A
Social History
Tobacco: Non-smoker
Alcohol: None
Drug: None
Family History
Family History: Not pertinent
Allergies / Home Medications
Allergies
Allergy/AdvReac Type Severity Reaction Status Date / Time
Cephalosporins Allergy Unknown Verified 11/24/24 09:01
house dust Allergy Shortness Verified 11/24/24 09:01
of
Breath/BREAK
OUT
latex Allergy Hypersensitivity, Verified 11/24/24 09:01
irritation
mold Allergy SHORTNESS Verified 11/24/24 09:01
OF
BREATH/BREAK
OUT
penicillin G Allergy Hives Verified 11/24/24 09:01
Penicillins Allergy Itching Verified 11/24/24 09:01
Home Medications
�Medication �Instructions �Recorded �Confirmed �Last Taken �Type
amlodipine 5 mg tablet 10 mg PO HS 11/10/23 11/07/24 11/23/24 History
apixaban 5 mg tablet (Eliquis) 5 mg PO BID 11/10/23 11/24/24 11/23/24 History
atorvastatin 80 mg tablet 80 mg PO HS 11/10/23 11/07/24 11/23/24 History
bumetanide 1 mg tablet 1 mg PO BID 11/10/23 11/24/24 11/23/24 History
ergocalciferol (vitamin D2) 1,250 1,250 mcg PO MOFR@0800 11/10/23 11/24/24 11/06/24 History
mcg (50,000 unit) capsule
guaifenesin 600 mg tablet, 600 mg PO BID 11/10/23 11/07/24 11/23/24 History
extended release 12 hr
levothyroxine 25 mcg tablet 25 mcg PO DAILY 11/10/23 11/24/24 11/23/24 History
montelukast 10 mg tablet 10 mg PO DAILY 11/10/23 11/24/24 11/23/24 History
omeprazole 20 mg capsule,delayed 20 mg PO DAILY 11/10/23 11/24/24 11/23/24 History
release
prednisone 5 mg tablet 5 mg PO DAILY 11/10/23 11/24/24 11/23/24 History
azithromycin 250 mg tablet 250 mg PO DAILY 12/07/23 11/24/24 11/23/24 History
budesonide 0.5 mg/2 mL suspension 0.5 mg inhalation R BID 11/24/24 Unknown History
for nebulization
glimepiride 2 mg tablet 2 mg PO DAILY 11/24/24 11/24/24 11/23/24 History
ipratropium 0.5 mg-albuterol 3 mg 3 ml inhalation R Q6HPRN PRN sob 11/24/24 Unknown History
(2.5 mg base)/3 mL nebulization
soln
lisinopril 2.5 mg tablet 5 mg PO DAILY 11/24/24 11/23/24 History
Review of Systems
-
Unable to Obtain full review of systems at this time due to: Dementia
Vitals / Labs / Diagnostic Testing
Vital Signs
Temp Pulse Resp BP Pulse Ox
98.6 F 78 15 160/65 99
11/24/24 14:18 11/24/24 15:44 11/24/24 15:44 11/24/24 14:18 11/24/24 15:44
Lab Data
11/24/24 09:23
11/24/24 09:23
Diagnostic Testing:
Physical Exam
-
HEENT: Normocephalic
Cardiovascular: S1/S2 and Peripheral Edema
Respiratory: Wheeze (B/L)
GI: Soft and Non Distended
Neurology: Awake and Alert
Skin: Warm
General: Comfortable
Assessment
-
#1. Acute Asthma exacerbation, known h/o severe persistent Asthma
- Last follow up at [facility] in 11/2023 (Dr. Del Valle), reportedly had been on Xolair. Unclear if currently using, also unclear if she is on prednisone chronically
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 IgE 416 in the past
- No h/o smoking per records
- B/l wheezing on exam, continue Duoneb qid, and Singulair
- Switch to Solumedrol 40 mg IV BID, added Nebulized Budesonide
- Continue Azithromax for suspected Bronchitis, no infiltrates noted on CXR. Afebrile, WBC count 7.9 K
- Check Influenza Panel. Check VBG. Patient currently awake and alert. No accessory muscle use
- Resume follow up with [facility] post discharge
- Pedal edema noted on exam, continue Bumex as ordered
#2. Morbid obesity with ?MUKESH/OHS
- Continue O2 to keep sats above 90%
- Out patiet PFTs sleep study etc,
- VBG in AM
- Suspect concomitant restrictive lung disease.
#3. H/o PE in remote past
- Chronically on Eliquis 5 mg PO BID, continue
Other medical diagnoses:
Hyperlipidemia, HTN
h/o Pulmonary emboli: cont Eliquis
Hypothyroidism
GERD
HFpEF
Data:
ECHO 2020: Normal left ventricular chamber size. Normal left ventricular wall thickness.
Normal left ventricular systolic function. Left ventricular ejection fraction
is 50-55% by visual assessment.
Normal right ventricular size and function.
Thickened mitral valve leaflets. Trace mitral regurgitation.
Compared to the previous echo 01/01/2015 there is no significant change.
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
Present period there was minimal response bronchodilator. Since 07/19/15, the FEV1 has improved from 340 milliliters to 670 milliliters and the vital capacity has improved from 560 milliliters to 930 milliliters.
[2024-11-24] MEDS: NOVOLOG FLEXPEN-LOW RESISTANCE 3 UNITS SC (17:46)
[2024-11-24] MEDS: PULMICORT 0.5 MG INH (19:37)
[2024-11-24] MEDS: MUCINEX 600 MG PO (20:37)
[2024-11-24] MEDS: ELIQUIS 5 MG PO (20:37)
[2024-11-24] MEDS: SOLU-MEDROL PF 40 MG IV (20:38)
[2024-11-24] MEDS: FLUSH (NSS) 1 FLUSH IV (20:48)
[2024-11-24 22:35] LABS: Glucose - Point of Care 303 mg/dl (70-99)
[2024-11-24] MEDS: NORVASC 10 MG PO (23:13)
[2024-11-24] MEDS: LIPITOR 80 MG PO (23:13)
[2024-11-25] MEDS: DUONEB 3 ML INH ×5 (05:11→19:18)
[2024-11-25 06:00] VITALS: BMI 45.7
[2024-11-25 07:20] VITALS: BP 130/64
[2024-11-25 07:31] LABS: Glucose - Point of Care 231 mg/dl (70-99)
[2024-11-25] MEDS: PULMICORT 0.5 MG INH ×2 (07:46→19:18)
--- NOTE | 2024-11-25 08:13 | W.PN.HOSP.TC ---
Today's Communication/Plan
-
see plan
Assessment / Plan
Assessment / Plan
Gen: NAD, Awake and alert
Eyes: EOMI, PERRLA, no scleral icterus.
Neck: supple.
CV: remains RRR, +S1/S2, no m/r/g.
Resp: B/L wheezes with dec AE (improved from yesterday)
Abd: +BS, soft, NT, ND
Skin: No rashes.
Neuro: CN 2-12 intact, non-focal.
Psych: Normal mood and affect.
CXR: No radiographic evidence of acute cardiopulmonary abnormality.
Acute COPD/asthma exacerbation:
-CXR clear
-on 2L NC in ER, now on 1L NC
-cont IV solumedrol, duonebs, pulmicort
-pulm following
-cont Singulair
-Clearly patient's morbid obesity is contributing to her acute hypoxemic respiratory insufficiency. She likely has obstructive sleep apnea/obesity hypoventilation syndrome as well as extrathoracic restrictive lung disease due to her morbid obesity.
DM2:
-a1dc 6.5%
-cont Amaryl
-with steroid-induced hyperglycemia
-add Lantus 10U
-SSI/accuchecks
Other problems:
Morbid obesity due to excess calories
Hyperlipidemia: cont statin
h/o Pulmonary emboli: cont Eliquis
Essential HTN: cont Norvasc/ACEi
Chronic HFpEF: [id number], Trop < 0.012, CXR without pulm edema, cont Bumex
Hypothyroidism: cont Levoxyl
GERD: cont PPI
FULL/Eliquis
Anticipated Discharge: Within 24 hours
Subjective/Interval History
-
Date of Service: November 25, 2024
Denies SOB at this time.
Objective Data
-
Labs:
Laboratory Results
06/28/25
06:00
WBC Pending
Hgb Pending
Hct Pending
Plt Count Pending
Sodium Pending
Potassium Pending
Chloride Pending
Carbon Dioxide Pending
BUN Pending
Creatinine Pending
Glucose Pending
Calcium Pending
Vital Signs:
Vital Signs
Temp Pulse Resp BP Pulse Ox
97.7 F 83 20 130/64 98
11/25/24 07:20 11/25/24 07:49 11/25/24 07:49 11/25/24 07:20 11/25/24 07:49
I&O
11/24/24 11/25/24 11/26/24
06:59 06:59 06:59
Intake Total 960 / 960
Balance 960 / 960
[2024-11-25 08:39] LABS: Hematocrit 35.3 % (37.0-47.0); Hemoglobin 10.9 g/dL (12.0-16.0); Mean Corp Hgb Conc. 30.9 g/dL (33.0-37.0); Mean Corpuscular Volume 89.6 fL (81.0-99.0); Nucleated Red Blood Cells % 0 %; Platelet Count 209 10^3/uL (130-400); Red Cell Dist. Width 17.5 % (11.5-14.5); Venous Blood Gas B.E. 3.3 mmol/L (-4 to +4); Venous Blood Gas O2 Sat % 92.8 %; Venous Blood Gas O2 Therapy 2 L
[2024-11-25] MEDS: AMARYL 2 MG PO (08:51)
[2024-11-25] MEDS: ZITHROMAX 250 MG PO (08:51)
[2024-11-25] MEDS: SINGULAIR 10 MG PO (08:51)
[2024-11-25] MEDS: MUCINEX 600 MG PO ×2 (08:51→20:17)
[2024-11-25] MEDS: ELIQUIS 5 MG PO ×2 (08:51→20:16)
[2024-11-25] MEDS: PROTONIX 40 MG PO (08:51)
[2024-11-25] MEDS: SYNTHROID 25 MCG PO (08:51)
[2024-11-25] MEDS: ZESTRIL 5 MG PO (08:51)
[2024-11-25] MEDS: SOLU-MEDROL PF 40 MG IV ×2 (08:51→20:17)
[2024-11-25] MEDS: BUMEX 1 MG PO ×2 (08:51→15:57)
[2024-11-25] MEDS: NOVOLOG FLEXPEN-LOW RESISTANCE 2 UNITS SC ×2 (08:52→13:20)
[2024-11-25] MEDS: LANTUS 0.1 UNITS SC (08:52)
[2024-11-25 09:03] LABS: Blood Urea Nitrogen 14 mg/dl (7-17); Calcium 8.7 mg/dl (8.4-10.2); Carbon Dioxide 30 mmol/L (22-30); Chloride 106 mmol/L (98-107); Estimated Creatinine Clearance 81 ml/min; Glucose 225 mg/dl (70-99); Potassium 4.4 mmol/L (3.5-5.1); Sodium 141 mmol/L (135-145); eGFR > 60.00
[2024-11-25 12:36] LABS: Glucose - Point of Care 231 mg/dl (70-99)
--- NOTE | 2024-11-25 13:32 | W.PN.PUL3 ---
Today's Communication / Plan
-
Budesonide + DuoNebs
Mucolytics with Mucinex
Solu-Medrol with wean as she clinically improves
Zithromax for URI
Pulmonary service will continue to follow along
Assessment
-
#1. Acute Asthma exacerbation, known h/o severe persistent Asthma with eosinophilia (absolute eosinophil count: 700 on 11/24/2024)
- Last follow up at [facility] [place] in 11/2023 (Dr. Del Valle), reportedly had been on Xolair. Unclear if currently using, also unclear if she is on prednisone chronically
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 IgE 416 in the past
- No h/o smoking per records
- B/l wheezing on exam - now resolved as of 11/25/2024, continue Duoneb qid, and Singulair
- Switched to Solumedrol 40 mg IV q12hr, and added Nebulized Budesonide
- Continue Azithromax for suspected Bronchitis, no infiltrates noted on CXR. Afebrile, WBC count normal
- Influenza Panel negative. VBG with mild hypercapnia with pH 7.34, pCO2 56; Patient currently awake and alert. No accessory muscle use
- Resume follow up with [facility] post discharge
- Pedal edema noted on exam, continue Bumex as ordered
#2. Morbid obesity with ?MUKESH/OHS
- Continue O2 to keep sats above 90%
- Outpatiet PFTs, sleep study etc,
- Suspect concomitant restrictive lung disease
#3. H/o PE in remote past
- Chronically on Eliquis 5 mg PO BID, continue
Other medical diagnoses:
Hyperlipidemia, HTN
h/o Pulmonary emboli: cont Eliquis
Hypothyroidism
GERD
HFpEF
Pulmonary service will continue to follow along
Data:
ECHO 2019: Normal left ventricular chamber size. Normal left ventricular wall thickness.
Normal left ventricular systolic function. Left ventricular ejection fraction
is 50-55% by visual assessment.
Normal right ventricular size and function.
Thickened mitral valve leaflets. Trace mitral regurgitation.
Compared to the previous echo 01/01/2015 there is no significant change.
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
Present period there was minimal response bronchodilator. Since 07/19/15, the FEV1 has improved from 340 milliliters to 670 milliliters and the vital capacity has improved from 560 milliliters to 930 milliliters.
Total time spent today was 38 minutes for this encounter. Time includes reviewing laboratory test/imaging results, reviewing pertinent medical records, obtaining and reviewing medical history, performing an appropriate exam, ordering medications,
tests and procedures. Time also includes documentation of this encounter, coordinating patient care and communicating with other healthcare professionals. Total time does not include separately billed tests performed on this date of service.
Subjective Data
-
Date of Service:
Date of Service: November 25, 2024
Chief Complaint: Pulmonary Follow Up
Subjective:
Patient seen earlier this afternoon (late note entry). Currently on 3 L/min. She is breathing well and has no current complaints. Currently denies chest pain, ESCOBEDO, nausea, fevers or chills.
Review of Systems
General: Other (Negative unless mentioned above)
Objective Data
Data Reviewed
Vital Signs / I&O / Oxygen:
Vital Signs
Temp Pulse Resp BP Pulse Ox
97.7 F 83 20 130/64 98
11/25/24 07:20 11/25/24 07:49 11/25/24 07:49 11/25/24 07:20 11/25/24 07:49
Intake and Output
11/24/24 11/25/24 11/26/24
06:59 06:59 06:59
Intake Total 960 / 960
Balance 960 / 960
SaO2 98
Nasal Cannula flow liters per 3
minute
Physical Exam
General: Respiratory Distress (negative), Comfortable, Chills (negative) and Sweats (negative)
HEENT: Normocephalic and Anicteric
Cardiovascular: S1-S2 and Peripheral Edema (+1 lower extremity pitting edema bilaterally)
Respiratory: Wheeze (negative), Rhonchi (negative), Non-Labored Respirations and Other (Coarse breath sounds heard bilaterally)
GI: Soft, Non Distended, Non Tender and Normal Bowel Sounds
Neurology: Awake, Alert and Tremors (negative)
Skin: Warm, Dry, Cyanosis (negative) and Jaundice (negative)
Labs/Micro/Reports
Lab Data
11/25/24 08:22
11/25/24 08:22
Microbiology
11/25/24 02:19 Nasal Swab Influenza Types A & B (ALAINA) - Final
Negative for Influenza A & B, NAAT
Negative results must be combined with clinical observations
and patient history.
Nucleic Acid Amplification test (NAAT)performed on the
[employer] platform.
--- NOTE | 2024-11-25 14:39 | CM ---
Patient seen bedside w/ caregiver, initial assessment completed. Admitted for sob.
Patient resides alone in a 6th floor apartment. Patient has 24/7 aides through [facility]. Patient uses RW, has home O2 (unsure of supplier), grab bar and shower chair in the bathroom. No SNF hx. Son, Justin, stated patient had a VN through insurance
but does not anymore.
Address, point of contact and insurance verified
PCP: Panfilo Ngo
[facility]
Justin was not aware that patient admitted to the hospital, provided patient's room phone number as requested.
Therapy evaluated patient, rec home PT at d/c
Plan: Home, will discuss HC w/ patient and/or son
[2024-11-25 15:20] VITALS: BP 135/60
[2024-11-25 16:30] LABS: Glucose - Point of Care 130 mg/dl (70-99)
[2024-11-25] MEDS: NOVOLOG FLEXPEN-LOW RESISTANCE SC (16:52)
[2024-11-25 20:13] VITALS: BP 111/44
[2024-11-25] MEDS: FLUSH (NSS) 1 FLUSH IV (20:17)
[2024-11-25] MEDS: LIPITOR 80 MG PO (20:27)
[2024-11-25] MEDS: NORVASC 10 MG PO (20:27)
[2024-11-25 21:09] LABS: Glucose - Point of Care 210 mg/dl (70-99)
[2024-11-25 23:00] VITALS: BP 114/39
[2024-11-26 06:00] VITALS: BMI 47.0
[2024-11-26 07:00] VITALS: BP 119/56
[2024-11-26] MEDS: DUONEB 3 ML INH ×4 (07:43→19:26)
[2024-11-26] MEDS: PULMICORT 0.5 MG INH ×2 (07:43→19:26)
[2024-11-26 08:09] LABS: Glucose - Point of Care 178 mg/dl (70-99)
[2024-11-26] MEDS: PROTONIX 40 MG PO (10:00)
[2024-11-26] MEDS: SYNTHROID 25 MCG PO (10:00)
[2024-11-26] MEDS: ZITHROMAX 250 MG PO (10:00)
[2024-11-26] MEDS: MUCINEX 600 MG PO ×2 (10:00→21:06)
[2024-11-26] MEDS: BUMEX 1 MG PO ×2 (10:00→17:47)
[2024-11-26] MEDS: SINGULAIR 10 MG PO (10:01)
[2024-11-26] MEDS: SOLU-MEDROL PF 40 MG IV ×3 (10:01→23:20)
[2024-11-26] MEDS: ELIQUIS 5 MG PO ×2 (10:01→21:06)
[2024-11-26] MEDS: ZESTRIL 5 MG PO (10:01)
[2024-11-26] MEDS: AMARYL 2 MG PO (10:01)
[2024-11-26] MEDS: NOVOLOG FLEXPEN-LOW RESISTANCE 1 UNITS SC ×2 (10:02→13:00)
[2024-11-26] MEDS: LANTUS 0.1 UNITS SC (10:02)
[2024-11-26 10:09] VITALS: BMI 45.9
--- NOTE | 2024-11-26 10:41 | W.PN.HOSP.TC ---
Today's Communication/Plan
-
see plan
Assessment / Plan
Assessment / Plan
Gen: NAD, Awake and alert
Eyes: EOMI, PERRLA, no scleral icterus.
Neck: supple.
CV: Continues to remain RRR, +S1/S2, no m/r/g.
Resp: B/L wheezes (improved from yesterday)
Abd: +BS, soft, NT, ND
Skin: No rashes.
Neuro: CN 2-12 intact, non-focal.
Psych: Normal mood and affect.
CXR: No radiographic evidence of acute cardiopulmonary abnormality.
Acute COPD/asthma exacerbation:
-CXR clear
-on 2L NC in ER, was on 3L NC O2 just now and sat 100%. With COPD I have instructed RN to titrate O2 to SpO2 91-92%.
-cont IV solumedrol, duonebs, pulmicort
-pulm following
-cont Singulair
-clearly patient's morbid obesity is contributing to her acute hypoxemic respiratory insufficiency. She likely has obstructive sleep apnea/obesity hypoventilation syndrome as well as extrathoracic restrictive lung disease due to her morbid obesity.
-as per discussion with the patient's aide at bedside the patient is sedentary 24 hours per day prior to admission. She reports that she eats her meals in bed and then goes back to sleep. I explained to the aide that if the patient does not become
more mobile/active that she will continue to have respiratory problems/complications due to poor tidal volumes and airway clearance.
-add Mucinex, IS
DM2:
-a1dc 6.5%
-cont Amaryl
-with steroid-induced hyperglycemia
-cont Lantus 10U, start 2U premeal Novolog
-SSI/accuchecks
Other problems:
Morbid obesity due to excess calories: encourage wt loss, affects all aspects of care
Hyperlipidemia: cont statin
h/o Pulmonary emboli: cont Eliquis
Essential HTN: cont Norvasc/ACEi
Chronic HFpEF: [id number], Trop < 0.012, CXR without pulm edema, cont Bumex
Hypothyroidism: cont Levoxyl
GERD: cont PPI
RN updated
FULL/Eliquis
Anticipated Discharge: Within 24 hours
Subjective/Interval History
-
Date of Service: November 26, 2024
No new complaints.
Objective Data
-
Vital Signs:
Vital Signs
Temp Pulse Resp BP Pulse Ox
97.7 F 66 18 119/56 100
11/26/24 07:00 11/26/24 07:46 11/26/24 07:46 11/26/24 07:00 11/26/24 07:46
I&O
11/25/24 11/26/24 11/27/24
06:59 06:59 06:59
Intake Total 960 / 960 1400 / 1400 1200 / 1200
Balance 960 / 960 1400 / 1400 1200 / 1200
[2024-11-26 12:12] LABS: Glucose - Point of Care 199 mg/dl (70-99)
[2024-11-26] MEDS: NOVOLOG FLEXPEN 2 UNITS SC (13:01)
[2024-11-26 15:00] VITALS: BP 110/46
[2024-11-26 16:04] VITALS: O2SAT 98
--- NOTE | 2024-11-26 16:55 | W.PN.PUL3 ---
Addendum entered and electronically signed by Johnnie Leal MD 11/26/24 20:05:
Correction: Patient is on 2 L/min, not 4 L/min
Original Note:
Today's Communication / Plan
-
Budesonide + DuoNebs
Mucolytics with Mucinex
Raise Solu-Medrol to 40mg IV q8hr given she continues to wheeze and she feels SOB and says that she is not improving; maintain euglycemia with goal BG >100 and <180
Consider diabetic ENERGY RATER consultation to assist with steroid-induced hyperglycemia
Continue with basal as bolus SQ insulin dosing
Zithromax for URI
PT/OT
Outpatient weight loss is isabel
Pulmonary service will continue to follow along
Assessment
-
#1. Acute Asthma exacerbation, known h/o severe persistent Asthma with eosinophilia (absolute eosinophil count: 700 on 11/24/2024)
- Last follow up at [facility] in 11/2023 (Dr. Del Valle), reportedly had been on Xolair. Unclear if currently using, also unclear if she is on prednisone chronically
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 IgE 416 in the past
- No h/o smoking per records
- B/l wheezing on exam - continue Duoneb qid, and Singulair
- Switched to Solumedrol 40 mg IV q12hr, and added Nebulized Budesonide --> will raise steroids to 40mg IV q8hr given she continues to wheeze and feels SOB today
- Maintain euglycemia while on steroids - I will add lantus and AC aspart and raise the ISS to moderate scale; consider diabetic ENERGY RATER consult to continue assisting steroid-induced hyperglycemia
- Continue Azithromax for suspected Bronchitis as well as its anti-inflammatory effect; no infiltrates noted on CXR. Afebrile, WBC count normal
- Influenza Panel negative. VBG with mild hypercapnia with pH 7.34, pCO2 56, but patient's pH corrects to almost normal; Patient currently awake and alert. No accessory muscle use
- Resume follow up with [facility] post discharge
- Pedal edema noted on exam, continue Bumex as ordered
#2. Morbid obesity with ?MUKESH/OHS
- Continue O2 to keep sats above 90%
- Outpatient PFTs, sleep study etc,
- Suspect concomitant restrictive lung disease
- Recheck VBG tomorrow to assure pH and pCO2 remain stable
#3. H/o PE in remote past
- Chronically on Eliquis 5 mg PO BID, continue
Other medical diagnoses:
Hyperlipidemia, HTN
h/o Pulmonary emboli: cont Eliquis
Hypothyroidism
GERD
HFpEF
Pulmonary service will continue to follow along
Data:
ECHO 2020: Normal left ventricular chamber size. Normal left ventricular wall thickness.
Normal left ventricular systolic function. Left ventricular ejection fraction
is 50-55% by visual assessment.
Normal right ventricular size and function.
Thickened mitral valve leaflets. Trace mitral regurgitation.
Compared to the previous echo 01/01/2015 there is no significant change.
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
Present period there was minimal response bronchodilator. Since 07/19/15, the FEV1 has improved from 340 milliliters to 670 milliliters and the vital capacity has improved from 560 milliliters to 930 milliliters.
Total time spent today was 42 minutes for this encounter. Time includes reviewing laboratory test/imaging results, reviewing pertinent medical records, obtaining and reviewing medical history, performing an appropriate exam, ordering medications,
tests and procedures. Time also includes documentation of this encounter, coordinating patient care and communicating with other healthcare professionals. Total time does not include separately billed tests performed on this date of service.
Subjective Data
-
Date of Service:
Date of Service: November 26, 2024
Chief Complaint: Pulmonary Follow Up
Subjective:
Patient seen earlier this afternoon (late note entry). Still short of breath. Has a cough but no phlegm coming up. Currently on 4 L/min nasal cannula. Denies chest pain, ESCOBEDO, nausea, fevers chills. Patient's aide is at bedside.
Review of Systems
General: Other (Negative unless mentioned above)
Objective Data
Data Reviewed
Vital Signs / I&O / Oxygen:
Vital Signs
Temp Pulse Resp BP Pulse Ox
97.7 F 66 18 119/56 100
11/26/24 07:00 11/26/24 07:46 11/26/24 07:46 11/26/24 07:00 11/26/24 07:46
Intake and Output
11/25/24 11/26/24 11/27/24
06:59 06:59 06:59
Intake Total 960 / 960 1400 / 1400 1200 / 1200
Balance 960 / 960 1400 / 1400 1200 / 1200
SaO2 100
Nasal Cannula flow liters per 3
minute
Physical Exam
General: Respiratory Distress (negative), Comfortable, Chills (negative) and Sweats (negative)
HEENT: Normocephalic and Anicteric
Cardiovascular: S1-S2 and Peripheral Edema (Nonpitting edema bilateral lower extremities)
Respiratory: Wheeze ([place] upon expiration bilaterally), Crackles (negative), Rhonchi ([place] upon expiration bilaterally) and Non-Labored Respirations
GI: Soft, Distended (Abdominal obesity), Non Tender and Normal Bowel Sounds
Neurology: Awake, Alert and Tremors (negative)
Skin: Warm, Dry, Cyanosis (negative) and Jaundice (negative)
Labs/Micro/Reports
Lab Data
11/25/24 08:22
11/25/24 08:22
Microbiology
11/25/24 02:19 Nasal Swab Influenza Types A & B (ALAINA) - Final
Negative for Influenza A & B, NAAT
Negative results must be combined with clinical observations
and patient history.
Nucleic Acid Amplification test (NAAT)performed on the
[employer] platform.
[2024-11-26 16:56] LABS: Glucose - Point of Care 192 mg/dl (70-99)
[2024-11-26] MEDS: NOVOLOG FLEXPEN SC (17:39)
[2024-11-26] MEDS: NOVOLOG FLEXPEN-MODERATE RESISTANCE 1 UNITS SC (17:45)
[2024-11-26] MEDS: TESSALON PERLES 200 MG PO ×2 (17:47→21:07)
[2024-11-26] MEDS: NOVOLOG FLEXPEN 4 UNITS SC (18:00)
[2024-11-26] MEDS: LIPITOR 80 MG PO (21:06)
[2024-11-26] MEDS: NORVASC 10 MG PO (21:07)
[2024-11-26 22:46] LABS: Glucose - Point of Care 238 mg/dl (70-99)
[2024-11-26 23:18] VITALS: BP 127/57
[2024-11-27 06:58] LABS: Venous Blood Gas B.E. 5.3 mmol/L (-4 to +4); Venous Blood Gas O2 Sat % 97.8 %
[2024-11-27 07:33] LABS: Glucose - Point of Care 191 mg/dl (70-99)
[2024-11-27] MEDS: DUONEB 3 ML INH ×4 (07:41→19:46)
[2024-11-27] MEDS: PULMICORT 0.5 MG INH ×2 (07:41→19:46)
[2024-11-27 07:45] VITALS: BP 127/52
[2024-11-27 08:14] LABS: Hematocrit 30.9 % (37.0-47.0); Hemoglobin 9.7 g/dL (12.0-16.0); Mean Corp Hgb Conc. 31.4 g/dL (33.0-37.0); Mean Corpuscular Volume 90.1 fL (81.0-99.0); Platelet Count 202 10^3/uL (130-400); Red Cell Dist. Width 18.0 % (11.5-14.5)
[2024-11-27] MEDS: SOLU-MEDROL PF 40 MG IV ×3 (08:59→23:44)
[2024-11-27] MEDS: MUCINEX 600 MG PO ×2 (09:00→20:25)
[2024-11-27] MEDS: ELIQUIS 5 MG PO ×2 (09:00→20:25)
[2024-11-27] MEDS: SINGULAIR 10 MG PO (09:00)
[2024-11-27] MEDS: SYNTHROID 25 MCG PO (09:00)
[2024-11-27] MEDS: BUMEX 1 MG PO ×2 (09:00→16:15)
[2024-11-27] MEDS: ZESTRIL 5 MG PO (09:00)
[2024-11-27] MEDS: TESSALON PERLES 200 MG PO ×3 (09:00→20:25)
[2024-11-27] MEDS: PROTONIX 40 MG PO (09:00)
[2024-11-27] MEDS: AMARYL 2 MG PO (09:00)
[2024-11-27] MEDS: ZITHROMAX 250 MG PO (09:00)
[2024-11-27] MEDS: LANTUS 0.12 UNITS SC (09:03)
[2024-11-27] MEDS: DRISDOL (VITAMIN D2) 50000 UNITS PO (09:03)
[2024-11-27 09:13] LABS: Blood Urea Nitrogen 27 mg/dl (7-17); Calcium 8.1 mg/dl (8.4-10.2); Carbon Dioxide 26 mmol/L (22-30); Chloride 109 mmol/L (98-107); Estimated Creatinine Clearance 63 ml/min; Glucose 176 mg/dl (70-99); Magnesium 2.1 mg/dl (1.6-2.3); Potassium 4.3 mmol/L (3.5-5.1); Sodium 141 mmol/L (135-145); eGFR > 60.00
[2024-11-27] MEDS: NOVOLOG FLEXPEN-MODERATE RESISTANCE 1 UNITS SC ×2 (09:52→17:34)
[2024-11-27] MEDS: NOVOLOG FLEXPEN 4 UNITS SC ×3 (09:52→17:34)
[2024-11-27 10:52] VITALS: BMI 45.9
[2024-11-27 11:26] LABS: Glucose - Point of Care 239 mg/dl (70-99)
[2024-11-27 12:28] VITALS: BP 130/67; PULSE 65; O2SAT 100
[2024-11-27] MEDS: NOVOLOG FLEXPEN-MODERATE RESISTANCE 3 UNITS SC (13:25)
--- NOTE | 2024-11-27 14:20 | W.PN.HOSP.TC ---
Today's Communication/Plan
-
cont solumedrol at q8h for today
wean o2; goal o2 >88%
Assessment / Plan
Assessment / Plan
Gen: NAD, Awake and alert
Eyes: EOMI, PERRLA, no scleral icterus.
Neck: supple.
CV: Continues to remain RRR, +S1/S2, no m/r/g.
Resp: B/L wheezes (improved from yesterday)
Abd: +BS, soft, NT, ND
Skin: No rashes.
Neuro: CN 2-12 intact, non-focal.
Psych: Normal mood and affect.
CXR: No radiographic evidence of acute cardiopulmonary abnormality.
Acute COPD/asthma exacerbation
Hypoxia:
-CXR clear
- On 2 L, wean as tolerated, goal O2 greater than 88%
-cont IV solumedrol increased to every 8h, duonebs, pulmicort
-pulm following
-cont Singulair
-azithro ppx
-clearly patient's morbid obesity is contributing to her acute hypoxemic respiratory insufficiency. She likely has obstructive sleep apnea/obesity hypoventilation syndrome as well as extrathoracic restrictive lung disease due to her morbid obesity.
-as per discussion with the patient's aide at bedside the patient is sedentary 24 hours per day prior to admission. She reports that she eats her meals in bed and then goes back to sleep. I explained to the aide that if the patient does not become
more mobile/active that she will continue to have respiratory problems/complications due to poor tidal volumes and airway clearance.
-add Mucinex, IS
DM2:
-a1dc 6.5%
-cont Amaryl
-with steroid-induced hyperglycemia
-cont Lantus 10U, start 2U premeal Novolog
-SSI/accuchecks
Other problems:
Morbid obesity due to excess calories: encourage wt loss, affects all aspects of care
Hyperlipidemia: cont statin
h/o Pulmonary emboli: cont Eliquis
Essential HTN: cont Norvasc/ACEi
Chronic HFpEF: [id number], Trop < 0.012, CXR without pulm edema, cont Bumex
Hypothyroidism: cont Levoxyl
GERD: cont PPI
RN updated
FULL/Eliquis
Anticipated Discharge: 24 - 48 hours
Subjective/Interval History
-
Date of Service: November 27, 2024
Wheezing still present
Objective Data
-
Labs:
Laboratory Results
11/27/24
06:47
WBC 8.0
Hgb 9.7 L
Hct 30.9 L
Plt Count 202
Sodium 141
Potassium 4.3
Chloride 109 H
Carbon Dioxide 26
BUN 27 H
Creatinine 0.9
Glucose 176 H
Calcium 8.1 L
Vital Signs:
Vital Signs
Temp Pulse Resp BP Pulse Ox
97.7 F 60 16 127/52 99
11/27/24 07:45 11/27/24 11:15 11/27/24 11:15 11/27/24 07:45 11/27/24 08:00
I&O
11/26/24 11/27/24 11/28/24
06:59 06:59 06:59
Intake Total 1400 / 1400 1919
Balance 1400 / 1400 1919
Review of Systems
-
History Source: Patient
All other systems: Not reviewed unless documented
Physical Exam
-
General: Obese
HEENT: Oxygen and Other (stridor on neck exam)
Respiratory: Clear to Auscultation
Cardiac: Regular Rhythm and S1/S2; Negative Murmur or Rub
GI: Soft and Nontender
Musculoskeletal: No Edema
Neuro: Awake, Alert, Oriented, Nonfocal/Grossly Intact and Other (Paraplegic)
Psych: Calm
Data Reviewed
-
Diagnostic Radiology: Report Reviewed by me
Labs: Labs Reviewed by me
[2024-11-27 15:45] VITALS: BP 112/37
--- NOTE | 2024-11-27 16:19 | W.PN.PUL3 ---
Today's Communication / Plan
-
- Continue IV steroids for today
- Transition to prednisone 60 mg daily in a.m.
Assessment
-
Reportedly patient developed increasing cough and shortness of breath over last 1-2 days prior to admission. In the ED, patient was noted to be wheezing and was admitted to hospital for suspected Asthma excaerbation. Pulmonary consult was requested
for further input.
#1. Acute Asthma exacerbation, known h/o severe persistent Asthma with eosinophilia (absolute eosinophil count: 700 on 11/24/2024)
- Last follow up at [facility] in 11/2023 (Dr. Del Valle), reportedly had been on Xolair. Unclear if currently using, also unclear if she is on prednisone chronically
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 IgE 416 in the past
- No h/o smoking per records
- Continue DuoNeb 4 times daily and Singulair, wheezing improving.
- Continue IV Solu-Medrol for today, anticipate switching to prednisone 60 mg in a.m. considering clinical improvement
- Continue Azithromax for suspected Bronchitis as well as its anti-inflammatory effect; no infiltrates noted on CXR. Afebrile, WBC count normal
- Influenza Panel negative. VBG with mild hypercapnia with pH 7.34, pCO2 56, but patient's pH corrects to almost normal; Patient currently awake and alert. No accessory muscle use
- Resume follow up with [facility] post discharge
- Pedal edema noted on exam, continue Bumex as ordered
#2. Morbid obesity with ?MUKESH/OHS
- Continue O2 to keep sats above 90%
- Outpatient PFTs, sleep study etc,
- Suspect concomitant restrictive lung disease
- VBG unchanged, chronically compensated hypercapnia with normal pH.
#3. H/o PE in remote past
- Chronically on Eliquis 5 mg PO BID, continue
Other medical diagnoses:
Hyperlipidemia, HTN
h/o Pulmonary emboli: cont Eliquis
Hypothyroidism
GERD
HFpEF
Pulmonary service will continue to follow along
Data:
ECHO 2020: Normal left ventricular chamber size. Normal left ventricular wall thickness.
Normal left ventricular systolic function. Left ventricular ejection fraction
is 50-55% by visual assessment.
Normal right ventricular size and function.
Thickened mitral valve leaflets. Trace mitral regurgitation.
Compared to the previous echo 01/01/2015 there is no significant change.
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
Present period there was minimal response bronchodilator. Since 07/19/15, the FEV1 has improved from 340 milliliters to 670 milliliters and the vital capacity has improved from 560 milliliters to 930 milliliters.
Total time spent today was 42 minutes for this encounter. Time includes reviewing laboratory test/imaging results, reviewing pertinent medical records, obtaining and reviewing medical history, performing an appropriate exam, ordering medications,
tests and procedures. Time also includes documentation of this encounter, coordinating patient care and communicating with other healthcare professionals. Total time does not include separately billed tests performed on this date of service.
Subjective Data
-
Date of Service:
Date of Service: November 27, 2024
Chief Complaint: Pulmonary Follow Up
Subjective:
Patient comfortably lying in bed, currently on room air, feeling better.
Objective Data
Data Reviewed
Vital Signs / I&O / Oxygen:
Vital Signs
Temp Pulse Resp BP Pulse Ox
97.7 F 60 16 127/52 99
11/27/24 07:45 11/27/24 15:40 11/27/24 15:40 11/27/24 07:45 11/27/24 08:00
Intake and Output
11/26/24 11/27/24 11/28/24
06:59 06:59 06:59
Intake Total 1400 / 1400 1919
Balance 1400 / 1400 1919
SaO2 99
Nasal Cannula flow liters per 2
minute
Physical Exam
General: Respiratory Distress (negative), Comfortable, Chills (negative) and Sweats (negative)
HEENT: Normocephalic and Anicteric
Cardiovascular: S1-S2 and Peripheral Edema (Nonpitting edema bilateral lower extremities)
Respiratory: Wheeze (Minimal end expiratory wheezing), Crackles (negative), Rhonchi (Improving rhonchi) and Non-Labored Respirations
GI: Soft, Distended (Abdominal obesity), Non Tender and Normal Bowel Sounds
Neurology: Awake and Alert
Skin: Warm and Dry
Labs/Micro/Reports
Lab Data
11/27/24 06:47
11/27/24 06:47
Microbiology
11/25/24 02:19 Nasal Swab Influenza Types A & B (ALAINA) - Final
Negative for Influenza A & B, NAAT
Negative results must be combined with clinical observations
and patient history.
Nucleic Acid Amplification test (NAAT)performed on the
[employer] platform.
[2024-11-27 16:47] LABS: Glucose - Point of Care 191 mg/dl (70-99)
[2024-11-27] MEDS: NORVASC 10 MG PO (20:25)
[2024-11-27] MEDS: LIPITOR 80 MG PO (20:25)
[2024-11-27 21:55] LABS: Glucose - Point of Care 210 mg/dl (70-99)
[2024-11-27 23:16] VITALS: BP 115/54
[2024-11-28 06:00] VITALS: BMI 46.2
[2024-11-28] MEDS: PULMICORT 0.5 MG INH (07:10)
[2024-11-28] MEDS: DUONEB 3 ML INH ×3 (07:10→15:21)
[2024-11-28 07:11] LABS: Hematocrit 32.9 % (37.0-47.0); Hemoglobin 10.5 g/dL (12.0-16.0); Mean Corp Hgb Conc. 31.9 g/dL (33.0-37.0); Mean Corpuscular Volume 89.2 fL (81.0-99.0); Platelet Count 209 10^3/uL (130-400); Red Cell Dist. Width 17.9 % (11.5-14.5)
[2024-11-28 07:18] VITALS: BP 130/57
[2024-11-28 07:24] LABS: ALT (SGPT) 17 U/L (0-35); AST (SGOT) 13 U/L (14-36); Albumin 3.2 g/dl (3.5-5.0); Alkaline Phosphatase 120 U/L (38-126); Blood Urea Nitrogen 26 mg/dl (7-17); Calcium 8.1 mg/dl (8.4-10.2); Carbon Dioxide 30 mmol/L (22-30); Chloride 106 mmol/L (98-107); Estimated Creatinine Clearance 63 ml/min; Glucose 182 mg/dl (70-99); Potassium 4.3 mmol/L (3.5-5.1); Sodium 141 mmol/L (135-145); Total Protein 5.9 g/dl (6.3-8.2); eGFR > 60.00
[2024-11-28 07:44] LABS: Glucose - Point of Care 212 mg/dl (70-99)
[2024-11-28] MEDS: NOVOLOG FLEXPEN-MODERATE RESISTANCE 3 UNITS SC (09:18)
[2024-11-28] MEDS: NOVOLOG FLEXPEN 4 UNITS SC ×2 (09:18→12:12)
[2024-11-28] MEDS: LANTUS 0.12 UNITS SC (09:19)
[2024-11-28] MEDS: ZITHROMAX 250 MG PO (09:21)
[2024-11-28] MEDS: TESSALON PERLES 200 MG PO (09:21)
[2024-11-28] MEDS: PROTONIX 40 MG PO (09:22)
[2024-11-28] MEDS: BUMEX 1 MG PO ×2 (09:22→15:51)
[2024-11-28] MEDS: MUCINEX 600 MG PO (09:22)
[2024-11-28] MEDS: SINGULAIR 10 MG PO (09:22)
[2024-11-28] MEDS: ZESTRIL 5 MG PO (09:22)
[2024-11-28] MEDS: AMARYL 2 MG PO (09:22)
[2024-11-28] MEDS: ELIQUIS 5 MG PO (09:22)
[2024-11-28] MEDS: SOLU-MEDROL PF 40 MG IV ×2 (09:23→15:51)
[2024-11-28] MEDS: SYNTHROID 25 MCG PO (09:23)
[2024-11-28 11:34] LABS: Glucose - Point of Care 266 mg/dl (70-99)
--- NOTE | 2024-11-28 12:11 | W.PN.PUL3 ---
Today's Communication / Plan
-
- Taper prednisone gradually, lowered by 10 mg every 4 days until patient is down to 5 mg daily which she should continue long-term
- Resume azithromycin 250 mg p.o. daily long-term
- Start budesonide nebulized twice a day along with DuoNeb twice a day scheduled postdischarge. Patient can have additional DuoNeb on an as-needed basis
- Continue montelukast nightly
- Patient has been on Xolair in the past, recommend resuming post discharge
- Outpatient follow-up with [facility] pulmonary clinic
Assessment
-
Reportedly patient developed increasing cough and shortness of breath over last 1-2 days prior to admission. In the ED, patient was noted to be wheezing and was admitted to hospital for suspected Asthma excaerbation. Pulmonary consult was requested
for further input.
#1. Acute Asthma exacerbation, known h/o severe persistent Asthma with eosinophilia (absolute eosinophil count: 700 on 11/24/2024)
- Last follow up at [facility] in 11/2023 (Dr. Del Valle), reportedly had been on Xolair. Chronically steroid-dependent, on prednisone 5 mg daily.
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 IgE 416 in the past
- No h/o smoking per records
- Continue DuoNeb 4 times daily and Singulair, wheezing significantly improved
- Responded well to IV Solu-Medrol, now switched to prednisone 60 mg daily
- Chronically on azithromycin to 50 mg daily
- Influenza Panel negative. VBG with mild hypercapnia with pH 7.34, pCO2 56, but patient's pH corrects to almost normal; Patient currently awake and alert. No accessory muscle use
- Resume follow up with [facility] post discharge
- Pedal edema noted on exam, continue Bumex as ordered
#2. Morbid obesity with ?MUKESH/OHS
- Continue O2 to keep sats above 90%
- Outpatient PFTs, sleep study etc,
- Suspect concomitant restrictive lung disease
- VBG unchanged, chronically compensated hypercapnia with normal pH.
#3. H/o PE in remote past
- Chronically on Eliquis 5 mg PO BID, continue
Other medical diagnoses:
Hyperlipidemia, HTN
h/o Pulmonary emboli: cont Eliquis
Hypothyroidism
GERD
HFpEF
Pulmonary service will continue to follow along
Data:
ECHO 2020: Normal left ventricular chamber size. Normal left ventricular wall thickness.
Normal left ventricular systolic function. Left ventricular ejection fraction
is 50-55% by visual assessment.
Normal right ventricular size and function.
Thickened mitral valve leaflets. Trace mitral regurgitation.
Compared to the previous echo 01/01/2015 there is no significant change.
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
Present period there was minimal response bronchodilator. Since 07/19/15, the FEV1 has improved from 340 milliliters to 670 milliliters and the vital capacity has improved from 560 milliliters to 930 milliliters.
Total time spent today was 42 minutes for this encounter. Time includes reviewing laboratory test/imaging results, reviewing pertinent medical records, obtaining and reviewing medical history, performing an appropriate exam, ordering medications,
tests and procedures. Time also includes documentation of this encounter, coordinating patient care and communicating with other healthcare professionals. Total time does not include separately billed tests performed on this date of service.
Subjective Data
-
Date of Service:
Date of Service: November 28, 2024
Chief Complaint: Pulmonary Follow Up
Subjective:
Patient appears more comfortable, wheezing significantly improved
Review of Systems
Genitourinary: Other (No new pulmonary symptoms reported)
Objective Data
Data Reviewed
Vital Signs / I&O / Oxygen:
Vital Signs
Temp Pulse Resp BP Pulse Ox
97.7 F 68 18 130/57 97
11/28/24 07:18 11/28/24 07:18 11/28/24 07:18 11/28/24 07:18 11/28/24 07:18
Intake and Output
11/27/24 11/28/2411/29/25
06:59 06:59 06:59
Intake Total 1919 860 / 860
Balance 1919 860 / 860
SaO2 97
Nasal Cannula flow liters per 2
minute
Physical Exam
General: Respiratory Distress (negative), Comfortable, Chills (negative) and Sweats (negative)
HEENT: Normocephalic and Anicteric
Cardiovascular: S1-S2 and Peripheral Edema (Nonpitting edema bilateral lower extremities)
Respiratory: Wheeze (Significantly improved), Crackles (negative), Rhonchi (Resolved) and Non-Labored Respirations
GI: Soft, Distended (Abdominal obesity), Non Tender and Normal Bowel Sounds
Neurology: Awake and Alert
Skin: Warm and Dry
Labs/Micro/Reports
Lab Data
11/28/24 06:17
11/28/24 06:17
[2024-11-28] MEDS: NOVOLOG FLEXPEN-MODERATE RESISTANCE 5 UNITS SC (12:12)
--- NOTE | 2024-11-28 12:13 | CM ---
Addendum entered by Savita Mckay 11/28/24 14:19:
Spoke w/ son, he and aide will come and pick patient up around 4 pm
Addendum entered by Savita Mckay 11/28/24 13:00:
Spoke w/ son, informed of d/c today and [facility] referral. Son agreeable to plan
Son will arrange for aide to be available for patient at home, will call CM back once arranged
Original Note:
Per hospitalist, patient can d/c home today. Patient has 24/7 aides. On room air.
Therapy rec home PT, patient agreeable. [facility] referral placed in [facility]
Aide not at bedside at this time.
Attempted call to patient's son to inform of d/c, unable to leave message as mailbox is full
Plan: Home w/ [facility]
--- NOTE | 2024-11-28 12:54 | W.PN.HOSP.TC ---
Addendum entered and electronically signed by Orlando Paez MD 11/29/24 14:27:
[id number]
Original Note:
Today's Communication/Plan
-
- Taper prednisone gradually, lowered by 10 mg every 4 days until patient is down to 5 mg daily which she should continue long-term
- Resume azithromycin 250 mg p.o. daily long-term
- Cont budesonide nebulized twice a day along with DuoNeb twice a day scheduled; additional DuoNeb on an as-needed basis
- Continue montelukast nightly
- Patient has been on Xolair in the past, recommend resuming post discharge
- Outpatient follow-up with [facility] pulmonary clinic - F/us with Eligio
- DC Insulin
Assessment / Plan
Assessment / Plan
Gen: NAD, Awake and alert
Eyes: EOMI, PERRLA, no scleral icterus.
Neck: supple.
CV: Continues to remain RRR, +S1/S2, no m/r/g.
Resp: B/L wheezes (improved from yesterday)
Abd: +BS, soft, NT, ND
Skin: No rashes.
Neuro: CN 2-12 intact, non-focal.
Psych: Normal mood and affect.
CXR: No radiographic evidence of acute cardiopulmonary abnormality.
Acute COPD/asthma exacerbation, improving
Hypoxia:
-CXR clear
- On 2 L, wean as tolerated, goal O2 greater than 88%
-cont IV solumedrol increased to every 8h, duonebs, pulmicort
-pulm following
-cont Singulair
-azithro ppx
-clearly patient's morbid obesity is contributing to her acute hypoxemic respiratory insufficiency. She likely has obstructive sleep apnea/obesity hypoventilation syndrome as well as extrathoracic restrictive lung disease due to her morbid obesity.
-as per discussion with the patient's aide at bedside the patient is sedentary 24 hours per day prior to admission. She reports that she eats her meals in bed and then goes back to sleep. I explained to the aide that if the patient does not become
more mobile/active that she will continue to have respiratory problems/complications due to poor tidal volumes and airway clearance.
-add Mucinex, IS
-Plan: Taper prednisone gradually, lowered by 10 mg every 4 days until patient is down to 5 mg daily which she should continue long-term
- Resume azithromycin 250 mg p.o. daily long-term
- Cont budesonide nebulized twice a day along with DuoNeb twice a day scheduled; additional DuoNeb on an as-needed basis
- Continue montelukast nightly
- Patient has been on Xolair in the past, recommend resuming post discharge
- Outpatient follow-up with [facility] pulmonary clinic - F/us with E[facility]
DM2:
-a1dc 6.5%
-cont Amaryl
-with steroid-induced hyperglycemia
-SSI/accuchecks
-DC off insulin as will be dropping steroid dose and taper
Other problems:
Morbid obesity due to excess calories: encourage wt loss, affects all aspects of care
Hyperlipidemia: cont statin
h/o Pulmonary emboli: cont Eliquis
Essential HTN: cont Norvasc/ACEi
Chronic HFpEF: [id number], Trop < 0.012, CXR without pulm edema, cont Bumex
Hypothyroidism: cont Levoxyl
GERD: cont PPI
RN updated
FULL/Eliquis
More than 30 minutes spent in discharge including
Final examination of the patient
Summarizing hospital stay
Instructions for continuing care to all relevant caregivers
Preparation of discharge records, prescriptions, and referral forms
Total time spent (in minutes): 36
Anticipated Discharge: Today
Subjective/Interval History
-
Date of Service: November 28, 2024
Patient has improved, ready for discharge on prednisone taper
Objective Data
-
Labs:
Laboratory Results
11/28/24
06:17
WBC 7.5
Hgb 10.5 L
Hct 32.9 L
Plt Count 209
Sodium 141
Potassium 4.3
Chloride 106
Carbon Dioxide 30
BUN 26 H
Creatinine 0.9
Glucose 182 H
Calcium 8.1 L
Total Bilirubin 0.4
AST 13 L
ALT 17
Alkaline Phosphatase 120
Vital Signs:
Vital Signs
Temp Pulse Resp BP Pulse Ox
97.7 F 68 18 130/57 97
11/28/24 07:18 11/28/24 07:18 11/28/24 07:18 11/28/24 07:18 11/28/24 07:18
I&O
11/27/24 11/28/24 11/29/24
06:59 06:59 06:59
Intake Total 1919 860 / 860
Balance 1919 860 / 860
Review of Systems
-
History Source: Patient
All other systems: Not reviewed unless documented
Physical Exam
-
General: Obese
HEENT: Oxygen
Respiratory: Clear to Auscultation
Cardiac: Regular Rhythm and S1/S2; Negative Murmur or Rub
GI: Soft and Nontender
Musculoskeletal: No Edema
Neuro: Awake, Alert, Oriented, Nonfocal/Grossly Intact and Other (Paraplegic)
Psych: Calm
Data Reviewed
-
Diagnostic Radiology: Report Reviewed by me
Labs: Labs Reviewed by me
--- NOTE | 2024-11-28 12:58 | W.DS.TRANS ---
DC Summary - Yarn Comber
-
Discharge Instructions:
Sleep Apnea Risk High
Discharge Diagnosis/Procedures Asthma exacerbation with eosinophilia
Diet Low Cholesterol,Low Fat,Low Sodium
Activity As tolerated
Blood Work CBC and BMP within 5 to 7 days with PCP
Instructions:
Stand-Alone Forms:
Changes to Home Medications: Yes
Discharge Medications:
DC Medications w/original date entered in [employer]
amlodipine 5 mg tablet 10 mg PO HS Blood Pressure 11/10/23
apixaban 5 mg tablet (Eliquis) 5 mg PO BID Blood Clot Prevention/Tx 11/10/23
atorvastatin 80 mg tablet 80 mg PO HS High Cholesterol 11/10/23
bumetanide 1 mg tablet 1 mg PO BID Fluid Retention/Swelling 11/10/23
ergocalciferol (vitamin D2) 1,250 mcg (50,000 unit) capsule 1,250 mcg PO MOFR@0800 Supplement 11/10/23
guaifenesin 600 mg tablet, extended release 12 hr 600 mg PO BID Cough 11/10/23
levothyroxine 25 mcg tablet 25 mcg PO DAILY@06 Thyroid 11/10/23
montelukast 10 mg tablet 10 mg PO DAILY Allergies 11/10/23
omeprazole 20 mg capsule,delayed release 20 mg PO DAILY Gastrointestinal Issue 11/10/23
prednisone 5 mg tablet 5 mg PO DAILY Anti-Inflammatory 11/10/23
Held on 11/28/24. Instructions: Resume on 12/22/24. resume after steroid taper
azithromycin 250 mg tablet 250 mg PO DAILY Infection 12/07/23
glimepiride 2 mg tablet 2 mg PO DAILY Diabetes 11/24/24
ipratropium 0.5 mg-albuterol 3 mg (2.5 mg base)/3 mL nebulization soln 3 ml inhalation R Q6HPRN PRN sob 11/24/24
lisinopril 2.5 mg tablet 5 mg PO DAILY Blood Pressure 11/24/24
budesonide 0.5 mg/2 mL suspension for nebulization 0.5 mg (2 mL) inhalation R BID Lung/Breathing Issues #60 mL 11/28/24
ipratropium 0.5 mg-albuterol 3 mg (2.5 mg base)/3 mL nebulization soln 3 ml inhalation BID 30 days #180 mL 11/28/24
prednisone 10 mg tablet See Rx Instructions .Route .COMPLEX #84 tabs 11/28/24
Home Medication Changes
ipratropium 0.5 mg-albuterol 3 mg (2.5 mg base)/3 mL nebulization soln 3 ml inhalation BID 30 days #180 mL 11/28/24
prednisone 10 mg tablet See Rx Instructions .Route .COMPLEX #84 tabs 11/28/24
Pending Results: No
[2024-11-28 15:33] VITALS: BP 142/61
[2024-11-28] MEDS: TESSALON PERLES PO (15:51)
== END 2024-11-28 17:25 | disposition home health service (06) | DRG 202 ==
LOC: 4 WEST ACU 12:54
PROVIDERS: Internal Medicine Critical Care Medicine; ADMITTING PHYSICIAN Internal Medicine; ATTENDING PHYSICIAN Internal Medicine; CONSULT PHYSICIAN Internal Medicine; EMERGENCY PHYSICIAN Emergency Medicine
DX: J45.51 Severe persistent asthma with (acute) exacerbation (principal); E66.2 Morbid (severe) obesity with alveolar hypoventilation; J44.1 Chronic obstructive pulmonary disease with (acute) exacerbation; I50.32 Chronic diastolic (congestive) heart failure; J44.0 Chronic obstructive pulmonary disease with (acute) lower respiratory infection; Z68.42 Body mass index [BMI] 45.0-49.9, adult; I11.0 Hypertensive heart disease with heart failure; E78.00 Pure hypercholesterolemia, unspecified; E03.9 Hypothyroidism, unspecified; K21.9 Gastro-esophageal reflux disease without esophagitis; E11.65 Type 2 diabetes mellitus with hyperglycemia; T38.0X5A Adverse effect of glucocorticoids and synthetic analogues, initial encounter; Z79.01 Long term (current) use of anticoagulants; R09.02 Hypoxemia; R06.89 Other abnormalities of breathing; Z60.2 Problems related to living alone
CPT/HCPCS: 71046; 80048; 80053; 82805; 82962; 83036; 83735; 83880; 84100; 84443; 84484; 85025; 85027; 87502; 93005; 94640; 96374; 97163; 97167; 97530; 99285

== ENCOUNTER 2024-12-07 11:15 | Outpatient (RCR) | payer OTHER, SELFPAY ==
[2024-12-07 11:40] VITALS: BP 154/55
[2024-12-07] MEDS: XOLAIR 150 MG SC ×2 (11:46→11:47)
== END 2024-12-08 10:00 | disposition home or self-care (01) ==
LOC: OID 11:15
PROVIDERS: ATTENDING PHYSICIAN Internal Medicine Critical Care Medicine; FAMILY PHYSICIAN Family Medicine
DX: J45.50 Severe persistent asthma, uncomplicated (principal); J45.901 Unspecified asthma with (acute) exacerbation
CPT/HCPCS: 96372; J2357

== ENCOUNTER 2025-01-05 11:13 | Outpatient (RCR) | payer OTHER, SELFPAY ==
[2025-01-05 11:15] VITALS: BP 152/56
[2025-01-05] MEDS: XOLAIR 150 MG SC ×2 (11:33)
== END 2025-01-08 08:45 | disposition home or self-care (01) ==
LOC: OID 11:13
PROVIDERS: ATTENDING PHYSICIAN Internal Medicine Critical Care Medicine; FAMILY PHYSICIAN Family Medicine
DX: J45.50 Severe persistent asthma, uncomplicated (principal); J45.901 Unspecified asthma with (acute) exacerbation
CPT/HCPCS: 96372; J2357

== ENCOUNTER 2025-01-30 11:43 | Outpatient (RCR) | payer OTHER, SELFPAY ==
[2025-01-30 11:35] VITALS: BP 137/73
[2025-01-30] MEDS: XOLAIR 150 MG SC ×2 (12:00)
== END 2025-02-27 23:59 | disposition home or self-care (01) ==
LOC: OID 11:43
PROVIDERS: ATTENDING PHYSICIAN Internal Medicine Critical Care Medicine; FAMILY PHYSICIAN Family Medicine
DX: J45.50 Severe persistent asthma, uncomplicated (principal); J45.901 Unspecified asthma with (acute) exacerbation
CPT/HCPCS: 96372; J2357

== ENCOUNTER 2025-04-10 10:49 | Outpatient (RCR) | payer OTHER, SELFPAY ==
[2025-04-10 11:19] VITALS: BP 152/69
[2025-04-10] MEDS: XOLAIR 150 MG SC ×2 (11:36)
== END 2025-04-11 09:34 | disposition home or self-care (01) ==
LOC: OID 10:49
PROVIDERS: ATTENDING PHYSICIAN Internal Medicine Critical Care Medicine; FAMILY PHYSICIAN Family Medicine
DX: J45.50 Severe persistent asthma, uncomplicated (principal); J45.901 Unspecified asthma with (acute) exacerbation
CPT/HCPCS: 96372; J2357

== ENCOUNTER 2025-05-08 11:29 | Outpatient (RCR) | payer OTHER, SELFPAY ==
[2025-05-08 11:43] VITALS: BP 129/92
[2025-05-08] MEDS: XOLAIR 150 MG SC ×2 (11:59)
== END 2025-05-09 10:09 | disposition home or self-care (01) ==
LOC: OID 11:29
PROVIDERS: ATTENDING PHYSICIAN Internal Medicine Critical Care Medicine; FAMILY PHYSICIAN Family Medicine
DX: J45.50 Severe persistent asthma, uncomplicated (principal); J45.901 Unspecified asthma with (acute) exacerbation
CPT/HCPCS: 96372; J2357